=== PATIENT | male | born 1955 | race African-American/Black ===

== ENCOUNTER 2016-07-18 07:24 | Day surgery (SDC) | payer OTHER ==
[2016-07-17 11:07] VITALS: BMI 42.5
[2016-07-18 08:36] VITALS: TEMP 97.5
[2016-07-18] MEDS ORDERED: MIDAZOLAM HCL 2 MG/2 ML SINGLE DOSE VIAL ONE ×4 (10:18→11:15)
[2016-07-18] MEDS ORDERED: ceFAZolin SODIUM 1 GM VIAL ONE ×2 (10:22)
[2016-07-18] MEDS ORDERED: HEPARIN NA (PORCINE) 5,000 UNITS/ML 1ML VIAL ONE ×2 (10:23→10:59)
[2016-07-18] MEDS ORDERED: LIDOCAINE HCL 1%, 10 MG/ML (20ML VIAL) ONE (10:23)
[2016-07-18] MEDS ORDERED: ceFAZolin SODIUM 1 GM VIAL IVPB ONE (10:29)
[2016-07-18] MEDS ORDERED: LIDOCAINE HCL 1%, 10 MG/ML (20ML VIAL) IJ ONE (10:38)
[2016-07-18] MEDS ORDERED: oxyCODONE HCL 5 MG TABLET PO PRN (12:03)
[2016-07-18] MEDS ORDERED: ONDANSETRON 4 MG/2 ML VIAL IVPUSH PRN (12:03)
[2016-07-18] MEDS ORDERED: CLOPIDOGREL BISULFATE 75 MG TABLET (FP) PO ONE (12:04)
--- NOTE | 2016-07-18 12:04 | OP ---
Operative Note - Note: Operative Date: 07/18/16 Pre-Operative Diagnosis: RLE claudication Operation: Aortogram, RLE angiogram, SFA atherectomy, DCB angioplasty Findings: 90% stenosis right sfa Post-Operative Diagnosis: Same as Pre-op Surgeon: Uri Sung Anesthesia: Fractional Estimated Blood Loss (mls): 75 Operative Report Dictated: Yes
--- NOTE | 2016-07-18 12:07 | HP ---
Admitting History and Physical - Admission Chief Complaint: RLE claudication - Smoking History Smoking history: Current every day smoker Have you smoked in the past 12 months: Yes Aproximately how many cigarettes per day: 10 If you are a former smoker, when did you quit?: 3 days ago - Alcohol/Substance Use Hx Alcohol Use: Yes (occ) Home Medications - Allergies Allergies/Adverse Reactions: Allergies Allergy/AdvReac Type Severity Reaction Status Date / Time No Known Drug Allergies Allergy Verified 07/17/16 11:07 bananas Allergy Uncoded 02/05/16 12:04 - Home Medications Home Medications: Ambulatory Orders Simvastatin [Zocor -] 20 mg PO HS 02/13/12 Aspirin 81 mg PO DAILY 04/17/13 Metoprolol Tartrate [Lopressor -] 25 mg PO HS 04/17/13 Clopidogrel Bisulfate [Plavix -] 75 mg PO DAILY #30 tablet 07/18/16 Niacin (Inositol Niacinate) [Niacin 500 mg Capsule] 500 mg PO DAILY 07/18/16 Nitroglycerin [Nitrostat] 0.4 mg SL PRN PRN 07/18/16 Physical Examination Vital Signs: Vital Signs Temperature 97.5 F L 07/18/16 08:22 Pulse Rate 74 07/18/16 08:22 Respiratory Rate 18 07/18/16 08:22 Blood Pressure 115/78 07/18/16 08:22 O2 Sat by Pulse Oximetry (%) 97 07/18/16 08:22 Constitutional: Yes: Well Nourished Eyes: Yes: WNL HENT: Yes: WNL Neck: Yes: WNL Cardiovascular: Yes: WNL Respiratory: Yes: WNL Gastrointestinal: Yes: WNL Extremities: Yes: WNL Edema: No Assessment/Plan RLE claudication 1. For angiogram today
[2016-07-18] MEDS ORDERED: LACTATED RINGERS SOLUTION 1,000 ML IV SCH (12:15)
[2016-07-18 14:29] VITALS: BP 121/72; PULSE 68
--- NOTE | 2016-07-19 10:49 | OP ---
DATE OF OPERATION: 07/18/2016 PROCEDURE: 1. Aortogram 2. Right lower extremity angiogram 3. Superficial femoral artery (SFA) atherectomy with drug-coated balloon (DCB) angioplasty PREOPERATIVE DIAGNOSIS: Right lower extremity claudication. POSTOPERATIVE DIAGNOSIS: Right lower extremity claudication. SURGEON: Uri Miguel DO ANESTHESIA: Fractional. BLOOD LOSS: 75 mL. INDICATION: The patient is a 60-year-old male that has right lower extremity claudication. He had a preoperative ultrasound showing that he has an KP of 0.64 in the right lower extremity with a greater than 75% stenosis in the SFA. PROCEDURE: Patient came into the operating room for surgery. Patient was consented for the procedure, understanding all risks, benefits, alternatives, then taken to the operating room and laid on the operating table in supine manner, and the area of the right and left groin prepped and draped in a sterile surgical manner. We then went ahead and injected 10 mL lidocaine 2% over the left common femoral artery. We then took our micropuncture needle and punctured the left common femoral artery under ultrasound guidance. Micropuncture was placed, and a traditional 5-Macedonian sheath was placed. We then placed a 0.035 floppy guidewire up into the aorta followed by an Omni Flush catheter. We then shot an aortogram showing that the aorta and iliac arteries were not diseased, but the bifurcation was very narrow. We then placed a 0.035 stiff Guidewire down into the right common femoral artery and into the SFA, and our Omni-Flush catheter followed. We then shot an angiogram of the right lower extremity showing that the common femoral artery, the profunda and the proximal SFA were patent. The [id number] SFA had a 90% lesion that was flow-limiting. The rest of the distal SFA was patent. Popliteal artery was patent, and patient had two-vessel runoff into the foot, which was the AT and the PT. At this point, we placed a 0.035 stiff Guidewire into the SFA. With our Omni Flush catheter, we placed a 6 x 45 crossover sheath up and over. 7000 units of IV heparin were administered to the patient. We then were selectively able to cross the lesion, and we were able to place a Viper wire into the anterior tibial artery. We then performed CSI over the atherectomy of the [id number] SFA. We then went ahead and shot a completion angiogram showing where the stenosis was, and there was some resolution of the stenosis. At this point, we used a 5 x 8 drug-coated balloon, which is a Lutonix balloon and performed angioplasty of the SFA. Completion angiogram showed that the SFA was not patent. There was no recoil. There was good brisk flow into the foot, and the AT was the primary runoff into the foot. At this point, we brought our sheath up and over and a StarClose device was deployed in the left common femoral artery. The area was wet and dried, and Dermabond was placed. The patient tolerated the procedure with no complication. The patient was transferred to the PACU in stable condition. URI MIGUEL DO [id number]
== END 2016-07-18 14:35 | disposition home or self-care (01) ==
LOC: JASU-SURG 07:24
PROVIDERS: ATTEND Surgery Vascular Surgery
PROC: B44FZZ3 Ultrasonography of Right Lower Extremity Arteries, Intravascular (ICD-10-PCS; 2016-07-18)
PROC: B41DZZZ Fluoroscopy of Aorta and Bilateral Lower Extremity Arteries (ICD-10-PCS; 2016-07-18)
PROC: 047K3Z1 Dilation of Right Femoral Artery using Drug-Coated Balloon, Percutaneous Approach (ICD-10-PCS; principal; 2016-07-18 09:00)
DX: I70.211 Atherosclerosis of native arteries of extremities with intermittent claudication, right leg (principal)
CPT/HCPCS: 37225; 76937; C2623; 76000-TC; 94760; J1644

== ENCOUNTER 2017-01-20 13:00 | Emergency (ER) | payer OTHER ==
[2017-01-20 13:06] VITALS: TEMP 98.6; BMI 41.5
--- NOTE | 2017-01-20 13:16 | PDOC ---
Attending Attestation - Resident Resident Name: Elle Jon - HPI HPI: 01/24/17 00:41 Pt presents to the ED complaining of scrotal pain for two days. Denies fever, nausea or vomiting. Does complain of some dysuria. - Physicial Exam PE: 01/24/17 00:42 Agree with resident's exam. + testiclar pain and swelling. - Medical Decision Making 01/24/17 00:42 Patient presents to the ED complaining of testiciular pain, swelling and dysuria. Scrotal Us checked to evaluate for epididimitis, hydrocele, less likely torsion. UA is positive, scrotal US shows evidence of epididimitis. Will treat with antibiotics and discharge home with follow up.
--- NOTE | 2017-01-20 13:24 | PDOC ---
History of Present Illness - General Chief Complaint: Pain Stated Complaint: TESTICULAR PAIN Time Seen by Provider: 01/20/17 13:15 History Source: Patient - History of Present Illness Initial Comments: 01/20/17 13:30 CC: 3 day h/o testicular pain Patient is a 61 y.o. male with a PMH of CAD (s/p tri vessel CABG in 2013) and DLD who presents to our facility today c/o 3 day h/o of testicular pain. Patient describes the pain as squeezing and exacerbated by ambulating or standing. Patient states he noted the pain when he woke up on Friday morning and noticed 6-7 episodes of bright red hematuria. Patient states he drank a lot of water and the hematuria resolved by Friday, however, the pain persisted and increased in severity prompting his visit to the ED this afternoon. Patient denies any fevers, chills, nausea, vomiting or diarrhea but does note a h/o erectile dysfunction since his CABG. Patient is not currently sexually active and denies any h/o STI's and notes he was last tested subsequent to his most recent sexual activity. Past History - Past Medical History Allergies/Adverse Reactions: Allergies Allergy/AdvReac Type Severity Reaction Status Date / Time No Known Drug Allergies Allergy Verified 01/20/17 13:02 bananas Allergy Uncoded 01/20/17 13:02 Home Medications: Ambulatory Orders Simvastatin [Zocor -] 20 mg PO HS 02/13/12 Aspirin 81 mg PO DAILY 04/17/13 Metoprolol Tartrate [Lopressor -] 25 mg PO BID 04/17/13 Clopidogrel Bisulfate [Plavix -] 75 mg PO DAILY #30 tablet 07/18/16 Niacin (Inositol Niacinate) [Niacin 500 mg Capsule] 500 mg PO DAILY 07/18/16 Nitroglycerin [Nitrostat] 0.4 mg SL PRN PRN 07/18/16 Ibuprofen [Motrin -] 600 mg PO QID #28 tablet 01/20/17 Levofloxacin [Levaquin -] 500 mg PO DAILY #9 tablet 01/20/17 Anemia: No Asthma: No Cancer: No Cardiac Disorders: Yes (mi 2011) CVA: No COPD: No CHF: No Dementia: No Diabetes: No GI Disorders: No Disorders: No HTN: Yes (?) Hypercholesterolemia: Yes (MILD) Liver Disease: No Seizures: No Thyroid Disease: No - Surgical History Abdominal Surgery: No Appendectomy: No Cardiac Surgery: Yes (02/2012 3 vessel CABG) Cholecystectomy: No Lung Surgery: No Neurologic Surgery: No Orthopedic Surgery: No - Immunization History Immunization Up to Date: Yes - Suicide/Smoking/Psychosocial Hx Smoking Status: Yes Smoking History: Current every day smoker Years of Tobacco Use: 30 Have you smoked in the past 12 months: Yes Number of Cigarettes Smoked Daily: 10 If you are a former smoker, when did you quit?: 3 days ago Information on smoking cessation initiated: No 'Breaking Loose' booklet given: 07/18/16 Hx Alcohol Use: No Drug/Substance Use Hx: No Substance Use Type: None Hx Substance Use Treatment: No Review of Systems - Review of Systems Constitutional: No: Chills HEENTM: No: Eye Pain, Blurred Vision, Double Vision, Throat Pain Respiratory: No: Shortness of Breath, Wheezing Cardiac (ROS): No: Chest Pain, Edema, Lightheadedness, Palpitations ABD/GI: No: Constipated, Diarrhea, Nausea, Vomiting : Yes: Hematuria, Testicular Swelling. No: Burning, Dysuria Neurological: No: Headache, Numbness, Seizure, Tingling All Other Systems: Reviewed and Negative *Physical Exam - Vital Signs Last Vital Signs Temp Pulse Resp BP Pulse Ox 98.6 F 74 16 146/92 100 01/20/17 13:03 01/20/17 13:03 01/20/17 13:03 01/20/17 13:03 01/20/17 13:03 - Physical Exam Neck: positive: Trachea midline, Supple Respiratory/Chest: positive: Lungs Clear, Normal Breath Sounds Gastrointestinal/Abdominal: positive: Normal Bowel Sounds, Soft Male Genitalia: positive: testicular tenderness, other (R testicle edematous, hard and tender to palpation; no appreciable erythema or swelling in groin area) Musculoskeletal: positive: Normal Inspection. negative: CVA Tenderness Integumentary: positive: Normal Color, Dry, Warm Neurologic: positive: Fully Oriented, Alert ED Treatment Course - LABORATORY CBC & Chemistry Diagram: 01/20/17 13:52 01/20/17 13:52 Medical Decision Making - Medical Decision Making 01/20/17 13:59 Patient is a 61 y.o. male who presents with a 3 day h/o of testicular pain. Initial DDx is for Testicular Torsion vs. Hydrocele vs. Epididymytitis. PLAN: Scrotal U/S CBC, CMP UA 01/20/17 14:05 UA nitrite (+) and shows 2+ blood. CBC significant for leukocytosis (18) - consistent with epididymis diagnosis. Scrotal U/S notes B/L hydroceles ( unchanged from previous scrotal U/S in 2016) as well as R sided epididmisorchitis with increased flow likely accounting for patient's pain. Patient given one dose of Levaquin (500 mg) in ED and 9 day outpatient prescription (10 day course total). Patient instructed to return to ED should his pain and swelling remain unchanged in 48 hours and given outpatient follow- up with urology @ discharge. *DC/Admit/Observation/Transfer Diagnosis at time of Disposition: Epididymitis - Discharge Dispostion Disposition: HOME Condition at time of disposition: Good Admit: No - Prescriptions Prescriptions: Levofloxacin [Levaquin -] 500 mg PO DAILY #9 tablet Ibuprofen [Motrin -] 600 mg PO QID #28 tablet - Referrals Referrals: Ana Maria Saldana MD [Primary Care Provider] - Jason More MD [Staff Physician] - - Patient Instructions Printed Discharge Instructions: DI for Epididymitis Additional Instructions: Please make an appointment with Dr. More, a urologist, for further evaluation.
[2017-01-20] MEDS ORDERED: morphine CARPU-JECT 2 MG/1 ML DISP.SYRIN IVPUSH ONE ×2 (14:10→15:24)
[2017-01-20] MEDS ORDERED: morphine CARPU-JECT 4 MG/1 ML DISP.SYRIN ONE ×2 (14:11→15:46)
[2017-01-20 14:15] LABS: URINE APPEARANCE CLOUDY; URINE BILIRUBIN NEGATIVE (NEGATIVE); URINE BLOOD 2+ (NEGATIVE); URINE COLOR DKYELLOW; URINE GLUCOSE (UA) NEGATIVE (NEGATIVE); URINE KETONE 1+ (NEGATIVE); URINE NITRITE POSITIVE (NEGATIVE); URINE UROBILINOGEN NEGATIVE mg/dL (0.2-1.0)
[2017-01-20 14:18] LABS: URINE LEUK ESTERASE 3+ (NEGATIVE); URINE PROTEIN 1+ (NEGATIVE)
[2017-01-20 14:20] LABS: URINE BACTERIA RARE /hpf (NONE SEEN); URINE MUCUS MODERATE; URINE RBC 9 /hpf (0-3); URINE WBC 427 /hpf (3-5)
[2017-01-20 14:43] LABS: BASOPHIL 0.3 % (0-2.0); EOSINOPHIL 0.4 % (0-4.5); MCH 30.7 pg (25.7-33.7); MCHC 32.6 g/dl (32.0-35.9); MEAN PLT VOLUME 9.4 fl (7.5-11.1); NEUTROPHILS 78.3 % (42.8-82.8); PLATELET COUNT 194 K/MM3 (134-434); RDW 15.2 % (11.9-15.9); WHITE BLOOD COUNT 18.1 K/mm3 (4.0-10.0)
[2017-01-20 14:59] LABS: ALBUMIN 3.6 g/dl (3.4-5.0); ALK PHOS 150 U/L (45-117); ANION GAP 6 (8-16); BILIRUBIN,TOTAL 0.8 mg/dL (0.2-1.0); CALCIUM 9.1 mg/dL (8.5-10.1); CO2 27 mmol/L (21-32); CREATININE 1.2 mg/dL (0.7-1.3); GLUCOSE,RANDOM 116 mg/dL (74-106); SGOT/AST 11 U/L (15-37); SGPT/ALT 25 U/L (12-78); TOT PROT 7.7 g/dl (6.4-8.2)
[2017-01-20] MEDS ORDERED: LEVOFLOXACIN 500 MG TABLET (FP) PO ONE (15:21)
[2017-01-20] MEDS ORDERED: LEVOFLOXACIN 500 MG TABLET (FP) ONE (15:46)
[2017-01-20 16:59] VITALS: BP 127/68; PULSE 76
--- NOTE | 2017-01-24 12:57 | PDOC ---
Patient Follow-up (Call Back) - Post ED Follow - Up Chief Complaint: Pain, Acute Condition at time of discharge: Good Disposition at time of original discharge: HOME Reason for Call Back: Abnwl. Microbiology (urine resistant to Levaquin, whic is resistant spoke to pt and will place on nitrofurantoin. pt has apt with PMD in 1 week.)
== END 2017-01-20 16:59 | disposition home or self-care (01) ==
LOC: JER 13:00
PROC: 3E033NZ Introduction of Analgesics, Hypnotics, Sedatives into Peripheral Vein, Percutaneous Approach (ICD-10-PCS; principal; 2017-01-20)
DX: N45.1 Epididymitis (principal); E78.00 Pure hypercholesterolemia, unspecified; I25.10 Atherosclerotic heart disease of native coronary artery without angina pectoris; I10 Essential (primary) hypertension; F17.210 Nicotine dependence, cigarettes, uncomplicated; Z95.1 Presence of aortocoronary bypass graft
CPT/HCPCS: 36415; 76870-TC; 80053; 81003; 81015; 85025; 87086; 87186; 96374; 96376; 99282-25

== ENCOUNTER 2017-01-25 17:09 | Inpatient (IN) | payer OTHER ==
[2017-01-25 17:14] VITALS: BMI 43.2
[2017-01-25] MEDS ORDERED: KETOROLAC TROMETHAMINE 30 MG/1 ML VIAL IVPUSH ONE (17:56)
--- NOTE | 2017-01-25 18:03 | PDOC ---
History of Present Illness - General Chief Complaint: Pain Stated Complaint: Groin pain,UTI, re-visit Time Seen by Provider: 01/25/17 17:22 - History of Present Illness Initial Comments: 01/25/17 17:57 61 y.o M with pmh of CAD (s/p cabg) and hld presenting with worsening testicular pain. Patient was seen on Friday with the same symptoms. A full workup was done and patient was diagnosed with epididymitis and d/c on levaquin. Patient was called yesterday after his urine culture grew E. Doli ESBL resistent to levaquin. Patient was prescribed Nitrofurantoin. Patient comes back due to worsening pain, subjective fever, and 1 episode of foamy emesis. 01/25/17 18:03 Past History - Past Medical History Allergies/Adverse Reactions: Allergies Allergy/AdvReac Type Severity Reaction Status Date / Time No Known Drug Allergies Allergy Verified 01/25/17 17:12 bananas Allergy Uncoded 01/25/17 17:12 Home Medications: Ambulatory Orders Simvastatin [Zocor -] 20 mg PO HS 02/13/12 Aspirin 81 mg PO DAILY 04/17/13 Metoprolol Tartrate [Lopressor -] 25 mg PO BID 04/17/13 Clopidogrel Bisulfate [Plavix -] 75 mg PO DAILY #30 tablet 07/18/16 Niacin (Inositol Niacinate) [Niacin 500 mg Capsule] 500 mg PO DAILY 07/18/16 Nitroglycerin [Nitrostat] 0.4 mg SL PRN PRN 07/18/16 Ibuprofen [Motrin -] 600 mg PO QID #28 tablet 01/20/17 Nitrofurantoin Macrocrystal [Nitrofurantoin] 100 mg PO BID #14 capsule 01/24/17 Anemia: No Asthma: No Cancer: No Cardiac Disorders: Yes (mi 2011, tripple bypass) CVA: No COPD: No CHF: No Dementia: No Diabetes: No GI Disorders: No Disorders: No HTN: Yes (?) Hypercholesterolemia: Yes (MILD) Liver Disease: No Seizures: No Thyroid Disease: No - Surgical History Abdominal Surgery: No Appendectomy: No Cardiac Surgery: Yes (02/2012 3 vessel CABG) Cholecystectomy: No Lung Surgery: No Neurologic Surgery: No Orthopedic Surgery: No - Immunization History Immunization Up to Date: Yes - Suicide/Smoking/Psychosocial Hx Smoking Status: Yes Smoking History: Current every day smoker Years of Tobacco Use: 30 Have you smoked in the past 12 months: Yes Number of Cigarettes Smoked Daily: 10 If you are a former smoker, when did you quit?: 3 days ago Information on smoking cessation initiated: Yes 'Breaking Loose' booklet given: 01/25/17 Hx Alcohol Use: No Drug/Substance Use Hx: No Substance Use Type: None Hx Substance Use Treatment: No Review of Systems - Review of Systems Able to Perform ROS?: Yes Comments:: 01/25/17 18:02 Constitutional: Yes: Fever No: Chills HEENTM: No: Eye Pain, Blurred Vision, Double Vision, Throat Pain Respiratory: No: Shortness of Breath, Wheezing Cardiac (ROS): No: Chest Pain, Edema, Lightheadedness, Palpitations ABD/GI: Yes: vomiting No: Constipated, Diarrhea, Nausea : Testicular Swelling. No: Burning, Dysuria, hematuria Neurological: No: Headache, Numbness, Seizure, Tingling All Other Systems: Reviewed and Negative *Physical Exam - Vital Signs Last Vital Signs Temp Pulse Resp BP Pulse Ox 98 F 86 19 114/66 99 01/25/17 17:12 01/25/17 17:12 01/25/17 17:12 01/25/17 17:12 01/25/17 17:12 - Physical Exam Comments: 01/25/17 18:02 GENERAL: Awake, alert, and fully oriented, in no acute distress HEAD: No signs of trauma, normocephalic, atraumatic EYES: PERRLA, EOMI, sclera anicteric, conjunctiva clear ENT: Auricles normal inspection, hearing grossly normal, nares patent, oropharynx clear without exudates. Moist mucosa NECK: Normal ROM, supple, no lymphadenopathy, JVD, or masses LUNGS: No distress, speaks full sentences, clear to auscultation bilaterally HEART: Regular rate and rhythm, normal S1 and S2, no murmurs, rubs or gallops, peripheral pulses normal and equal bilaterally. ABDOMEN: Soft, nontender, normoactive bowel sounds. No guarding, no rebound. No masses EXTREMITIES: Normal inspection, Normal range of motion, no edema. No clubbing or cyanosis. NEUROLOGICAL: Cranial nerves II through XII grossly intact. Normal speech, normal gait, no focal sensorimotor deficits SKIN: Warm, Dry, normal turgor, no rashes or lesions noted. Male Genitalia: positive: testicular tenderness, other (R testicle edematous, hard and tender to palpation; no appreciable erythema or swelling in groin area) ED Treatment Course - LABORATORY CBC & Chemistry Diagram: 01/26/17 07:35 01/26/17 07:35 Medical Decision Making - Medical Decision Making 01/25/17 18:03 61 y.o M with pmh of CAD (s/p cabg) and hld presenting with worsening testicular pain. Given hx and physical, will order cbc, cmp, pain control, and repeat UA/UCx. 01/25/17 18:47 WBC-41.6. Given severe pain, urology called. Awaiting call back. 01/25/17 19:01 Care taken over by Dr. Leavitt *DC/Admit/Observation/Transfer Diagnosis at time of Disposition: Epididymitis - Discharge Dispostion Condition at time of disposition: Improved
[2017-01-25 18:12] LABS: MCH 30.1 pg (25.7-33.7); MCHC 32.8 g/dl (32.0-35.9); MEAN CELL VOLUME 91.8 fl (80-96); MEAN PLT VOLUME 8.7 fl (7.5-11.1); PLATELET COUNT 257 K/MM3 (134-434); RDW 14.5 % (11.9-15.9)
[2017-01-25] MEDS ORDERED: KETOROLAC TROMETHAMINE 30 MG/1 ML VIAL ONE (18:17)
[2017-01-25 18:21] LABS: WHITE BLOOD COUNT 41.6 K/mm3 (4.0-10.0)
[2017-01-25 18:32] LABS: URINE APPEARANCE SLCLOUDY; URINE BILIRUBIN NEGATIVE (NEGATIVE); URINE BLOOD 1+ (NEGATIVE); URINE COLOR AMBER; URINE GLUCOSE (UA) NEGATIVE (NEGATIVE); URINE KETONE 1+ (NEGATIVE); URINE NITRITE NEGATIVE (NEGATIVE)
[2017-01-25 18:34] LABS: ALBUMIN 3.1 g/dl (3.4-5.0); ALK PHOS 137 U/L (45-117); ANION GAP 8 (8-16); BILIRUBIN,TOTAL 0.8 mg/dL (0.2-1.0); CALCIUM 8.5 mg/dL (8.5-10.1); CO2 27 mmol/L (21-32); CREATININE 1.4 mg/dL (0.7-1.3); GLUCOSE,RANDOM 140 mg/dL (74-106); SGOT/AST 17 U/L (15-37); SGPT/ALT 37 U/L (12-78); TOT PROT 7.1 g/dl (6.4-8.2)
[2017-01-25] MEDS ORDERED: PIPERACILLIN/TAZOB 3.375 GM 3.375 GM in DEXTROSE 5%-WATER - 50 ML IVPB ONE (18:44)
--- NOTE | 2017-01-25 18:44 | PDOC ---
History of Present Illness - General Chief Complaint: Pain Stated Complaint: Groin pain,UTI, re-visit Time Seen by Provider: 01/25/17 17:22 - History of Present Illness Initial Comments: 01/25/17 18:35 61 M with recently diagnosed epididymitis presenting to ER with worsening scrotal pain and swelling. Pt was initially seen here 5 days ago with same complaint, had a scrotal ultrasound that showed likely epididymitis, and pt was DC'ed home with course of levaquin. He took this until he was called yesterday with his urine culture results, that showed E coli that was resistant to levaquin. Pt was then prescribed macrobid yesterday, which he has taken a single dose of. Pt presents today with complaint of worsening scrotal pain and subjective fevers. Past History - Past Medical History Allergies/Adverse Reactions: Allergies Allergy/AdvReac Type Severity Reaction Status Date / Time No Known Drug Allergies Allergy Verified 01/25/17 17:12 bananas Allergy Uncoded 01/25/17 17:12 Home Medications: Ambulatory Orders Simvastatin [Zocor -] 20 mg PO HS 02/13/12 Aspirin 81 mg PO DAILY 04/17/13 Metoprolol Tartrate [Lopressor -] 25 mg PO BID 04/17/13 Clopidogrel Bisulfate [Plavix -] 75 mg PO DAILY #30 tablet 07/18/16 Niacin (Inositol Niacinate) [Niacin 500 mg Capsule] 500 mg PO DAILY 07/18/16 Nitroglycerin [Nitrostat] 0.4 mg SL PRN PRN 07/18/16 Ibuprofen [Motrin -] 600 mg PO QID #28 tablet 01/20/17 Nitrofurantoin Macrocrystal [Nitrofurantoin] 100 mg PO BID #14 capsule 01/24/17 Anemia: No Asthma: No Cancer: No Cardiac Disorders: Yes (mi 2011, tripple bypass) CVA: No COPD: No CHF: No Dementia: No Diabetes: No GI Disorders: No Disorders: No HTN: Yes (?) Hypercholesterolemia: Yes (MILD) Liver Disease: No Seizures: No Thyroid Disease: No - Surgical History Abdominal Surgery: No Appendectomy: No Cardiac Surgery: Yes (02/2012 3 vessel CABG) Cholecystectomy: No Lung Surgery: No Neurologic Surgery: No Orthopedic Surgery: No - Immunization History Immunization Up to Date: Yes - Suicide/Smoking/Psychosocial Hx Smoking Status: Yes Smoking History: Current every day smoker Years of Tobacco Use: 30 Have you smoked in the past 12 months: Yes Number of Cigarettes Smoked Daily: 10 If you are a former smoker, when did you quit?: 3 days ago Information on smoking cessation initiated: Yes 'Breaking Loose' booklet given: 01/25/17 Hx Alcohol Use: No Drug/Substance Use Hx: No Substance Use Type: None Hx Substance Use Treatment: No Abd/GI Specific PMHX - Complaint Specific PMHX GERD: No Review of Systems - Review of Systems Comments:: 01/25/17 18:37 "GENERAL/CONSTITUTIONAL: No fever or chills. No weakness. HEAD, EYES, EARS, NOSE AND THROAT: No change in vision. No ear pain or discharge. No sore throat. CARDIOVASCULAR: No chest pain or shortness of breath. RESPIRATORY: No cough, wheezing, or hemoptysis. GASTROINTESTINAL: No nausea, vomiting, diarrhea or constipation. GENITOURINARY: +scrotal pain and swelling. MUSCULOSKELETAL: No joint or muscle swelling or pain. No neck or back pain. SKIN: No rash NEUROLOGIC: No headache, vertigo, loss of consciousness, or change in strength/ sensation. ENDOCRINE: No increased thirst. No abnormal weight change. HEMATOLOGIC/LYMPHATIC: No anemia, easy bleeding, or history of blood clots. ALLERGIC/IMMUNOLOGIC: No hives or skin allergy. " *Physical Exam - Vital Signs Last Vital Signs Temp Pulse Resp BP Pulse Ox 98 F 86 19 114/66 99 01/25/17 17:12 01/25/17 17:12 01/25/17 17:12 01/25/17 17:12 01/25/17 17:12 - Physical Exam Comments: 01/25/17 18:38 "GENERAL: Awake, alert, and fully oriented, in no acute distress HEAD: No signs of trauma EYES: PERRLA, EOMI, sclera anicteric, conjunctiva clear ENT: Auricles normal inspection, hearing grossly normal, nares patent, oropharynx clear without exudates. Moist mucosa NECK: Nontender, no stepoffs, Normal ROM, supple, no lymphadenopathy, JVD, or masses LUNGS: Breath sounds equal, clear to auscultation bilaterally. No wheezes, and no crackles HEART: Regular rate and rhythm, normal S1 and S2, no murmurs, rubs or gallops ABDOMEN: Soft, nontender, normoactive bowel sounds. No guarding, no rebound. No masses : bilateral scrotal edema and induration, R>L, tender to palpation, no fluctuance noted, no significant erythema EXTREMITIES: Normal range of motion, no edema. No clubbing or cyanosis. No cords, erythema, or tenderness NEUROLOGICAL: Cranial nerves II through XII intact. 5/5 strength and sensation in all extremities, Normal speech, normal gait SKIN: Warm, Dry, normal turgor, no rashes or lesions noted. " ED Treatment Course - LABORATORY CBC & Chemistry Diagram: 01/25/17 18:09 01/25/17 18:09 - ADDITIONAL ORDERS Additional order review: 01/25/17 18:09 RBC 5.20 MCV 91.8 MCHC 32.8 RDW 14.5 MPV 8.7 Neutrophils % No Result Required. Lymphocytes % No Result Required. - Medications Given in the ED: ED Medications Discontinued Medications Generic Name Dose Route Start Last Admin Trade Name Freq PRN Reason Stop Dose Admin Ketorolac Tromethamine 30 mg 01/25/17 17:56 01/25/17 18:25 Toradol Injection - IVPUSH 01/25/17 17:57 30 mg ONCE ONE Administration Medical Decision Making - Medical Decision Making 01/25/17 18:39 61 M with epididymitis found on scrotal US 5 days ago, now with worsening pain and swelling in the context of inadequate antibiotic coverage. Pt with no fevers currently. - labs, UA - Abx - Discuss with urology 01/25/17 18:56 WBC 41, pt started on IV zosyn. Will admit to obs. Urology consulted, awaiting callback. 01/25/17 19:00 Spoke with urology, who recommends repeat US. Agrees with starting pt on Zosyn while awaiting new urine culture. Pt to be admitted to hospitalist. Care signed out to night team, pending repeat US and admission to hospital. Case discussed in detail with oncoming Emergency Physician including history, physical exam and ancillary studies. Oncoming Emergency Physician has assumed care for the patient and will complete the evaluation and treatment. Patient is aware of the plan. *DC/Admit/Observation/Transfer Diagnosis at time of Disposition: Epididymitis - Discharge Dispostion Condition at time of disposition: Improved - Attestations Physician Attestion: 01/26/17 07:57 I, Dr. Yakov Anderson MD, attest that this document has been prepared under my direction and personally reviewed by me in its entirety. I further attest, that it accurately reflects all work, treatment, procedures and medical decision -making performed by me.
[2017-01-25 18:47] LABS: URINE PROTEIN 1+ (NEGATIVE)
[2017-01-25] MEDS ORDERED: PIPERACILLIN/TAZOB 3.375 GM 50 ML IVPB ONE (18:55)
--- NOTE | 2017-01-25 19:10 | PDOC ---
*Physical Exam - Vital Signs Last Vital Signs Temp Pulse Resp BP Pulse Ox 98 F 86 19 114/66 99 01/25/17 17:12 01/25/17 17:12 01/25/17 17:12 01/25/17 17:12 01/25/17 17:12 ED Treatment Course - LABORATORY CBC & Chemistry Diagram: 01/25/17 18:09 01/25/17 18:09 - ADDITIONAL ORDERS Additional order review: Laboratory Results 01/25/17 01/25/17 18:20 18:09 Sodium 139 Potassium 3.8 Chloride 104 Carbon Dioxide 27 Anion Gap 8 BUN 10 D Creatinine 1.4 H Creat Clearance w eGFR 51.69 Random Glucose 140 H D Calcium 8.5 Total Bilirubin 0.8 AST 17 D ALT 37 D Alkaline Phosphatase 137 H Total Protein 7.1 Albumin 3.1 L Urine Color Jessica Urine Appearance Slcloudy Urine pH 5.0 Urine Protein 1+ H Urine Glucose (UA) Negative Urine Ketones 1+ H Urine Blood 1+ H Urine Nitrite Negative Urine Bilirubin Negative Urine Urobilinogen 2.0 01/25/17 18:09 RBC 5.20 MCV 91.8 MCHC 32.8 RDW 14.5 MPV 8.7 Neutrophils % No Result Required. Lymphocytes % No Result Required. - Medications Given in the ED: ED Medications Discontinued Medications Generic Name Dose Route Start Last Admin Trade Name Rey PRN Reason Stop Dose Admin Ketorolac Tromethamine 30 mg 01/25/17 17:56 01/25/17 18:25 Toradol Injection - IVPUSH 01/25/17 17:57 30 mg ONCE ONE Administration Medical Decision Making - Medical Decision Making WBC 41, suspected epididimytis. Micrologged, seen, awaitng response. Will get repeat testicular ultrasound. 01/25/17 19:[address] Gilmore signed out to the director of medical staff services over the phone. 01/25/17 19:13 *DC/Admit/Observation/Transfer Diagnosis at time of Disposition: Epididymitis - Discharge Dispostion Condition at time of disposition: Improved Admit: Yes
--- NOTE | 2017-01-25 19:23 | PN ---
Teaching Attending Note Name of Resident: Gino Marroquin ATTENDING PHYSICIAN STATEMENT I saw and evaluated the patient. I reviewed the resident's note and discussed the case with the resident. I agree with the resident's findings and plan as documented. SUBJECTIVE: 61 y/o M c/o right testicular pain and swelling for 3 weeeks, initially treated with levofloxacin and then found to be with ESBL not sensitive to levofloxacin. Presented complianing of 10/ testicular pain. OBJECTIVE: Gen: Afebrile, in acute distress with movement HEENT: NC, AT, PERRLA, EOMI, MMM LUNGS: CTA CVS: RRR, S1, S2 no M/G/R ABD: obese, NT, BS+, no CVA tenderness : right testicle enlarged, tender to palpation, positive Prhen sign, testicle enlarged no nodules palpated no mass. Neuro: CN2-12 intact Laboratory Results - last 24 hr 01/25/17 01/25/17 01/25/17 18:09 18:09 18:20 WBC 41.6 H* D RBC 5.20 Hgb 15.7 Hct 47.8 MCV 91.8 MCH 30.1 MCHC 32.8 RDW 14.5 Plt Count 257 D MPV 8.7 Neutrophils % No Result Required. Lymphocytes % No Result Required. Sodium 139 Potassium 3.8 Chloride 104 Carbon Dioxide 27 Anion Gap 8 BUN 10 D Creatinine 1.4 H Creat Clearance w eGFR 51.69 Random Glucose 140 H D Calcium 8.5 Total Bilirubin 0.8 AST 17 D ALT 37 D Alkaline Phosphatase 137 H C-Reactive Protein Total Protein 7.1 Albumin 3.1 L Urine Color Jessica Urine Appearance Slcloudy Urine pH 5.0 Urine Protein 1+ H Urine Glucose (UA) Negative Urine Ketones 1+ H Urine Blood 1+ H Urine Nitrite Negative Urine Bilirubin Negative Urine Urobilinogen 2.0 01/25/17 18:30 WBC RBC Hgb Hct MCV MCH MCHC RDW Plt Count MPV Neutrophils % Lymphocytes % Sodium Potassium Chloride Carbon Dioxide Anion Gap BUN Creatinine Creat Clearance w eGFR Random Glucose Calcium Total Bilirubin AST ALT Alkaline Phosphatase C-Reactive Protein 14.2 H Total Protein Albumin Urine Color Urine Appearance Urine pH Urine Protein Urine Glucose (UA) Urine Ketones Urine Blood Urine Nitrite Urine Bilirubin Urine Urobilinogen ASSESSMENT AND PLAN: Epididymitis possibly secondary to UTI- Meropenem sensitive IVF Follow urology and ID consults Tramadol prn
[2017-01-25 19:39] LABS: METAMYELOCYTE 4 % (0-2); MYELOCYTE 2 % (0-2); PLATELET COMMENT2 FEW GIANT PLTS; PLATELET ESTIMATE ADEQUATE (NORMAL); TOTAL CELLS COUNTED 100
--- NOTE | 2017-01-25 21:46 | HP ---
<Gino Marroquin - Last Filed: 01/26/17 07:04> CHIEF COMPLAINT: right testicular pain PCP: Dr. Kim HISTORY OF PRESENT ILLNESS: 61M w/ hx of CAD s/p CABG x 3 vessel and HLD presenting with 9 days of right testicular pain. Pt reports that he went to the ED on 01/20 where he was diagnosed with epididymitis and a UTI, and discharged home on a course of levaquin and motrin. Pt states that his sxs did not resolve and the motrin barely helped. Yesterday, the pt was called and notified that the urine cultures grew E. coli ESBL that was resistant to levaquin, and was told to switch abx to nitrofurantoin. However, despite taking 3 doses of nitrofurantoin , his pain was too severe, and his mother was adamant that he come back to the ED. Pt states that the pain is 10/10 when moving, 5/10 at rest, is sharp, and radiates to upper thigh and groin. He also reports subjective fevers, chills, cold sweats, an episode of emesis this am, and urinary frequency. He denies dysuria, urgency, chest pain, SOB, abdominal pain, diarrhea, constipation, and being sexually active since his . ER course was notable for: (1) leukocytosis of 41 (2) ESR of 60 (3) Recent Travel: PAST MEDICAL HISTORY: CAD and HLD PAST SURGICAL HISTORY: CABG x 3 vessel Social History: Smokin cig/day x 44 years Alcohol: none Drugs: none Family History: denies Allergies No Known Drug Allergies Allergy (Verified 01/25/17 17:12) bananas Allergy (Uncoded 01/25/17 17:12) HOME MEDICATIONS: Home Medications Medication Instructions Recorded Simvastatin [Zocor -] 20 mg PO HS 02/13/12 Aspirin 81 mg PO DAILY 04/17/13 Metoprolol Tartrate [Lopressor -] 25 mg PO BID 04/17/13 Clopidogrel Bisulfate [Plavix -] 75 mg PO DAILY #30 tablet 07/18/16 Niacin (Inositol Niacinate) 500 mg PO DAILY 07/18/16 [Niacin 500 mg Capsule] Nitroglycerin [Nitrostat] 0.4 mg SL PRN PRN 07/18/16 Ibuprofen [Motrin -] 600 mg PO QID #28 tablet 01/20/17 Nitrofurantoin Macrocrystal 100 mg PO BID #14 capsule 01/24/17 [Nitrofurantoin] REVIEW OF SYSTEMS CONSTITUTIONAL: Absent: diaphoresis, generalized weakness, malaise, loss of appetite, weight change Present: fevers, chills HEENT: Absent: rhinorrhea, nasal congestion, throat pain, throat swelling, difficulty swallowing, mouth swelling, ear pain, eye pain, visual changes CARDIOVASCULAR: Absent: chest pain, syncope, palpitations, irregular heart rate, lightheadedness , peripheral edema RESPIRATORY: Absent: cough, shortness of breath, dyspnea with exertion, orthopnea, wheezing, stridor, hemoptysis GASTROINTESTINAL: Absent: abdominal pain, abdominal distension, nausea, vomiting, diarrhea, constipation, melena, hematochezia GENITOURINARY: Absent: dysuria, urgency, hesitancy, hematuria, flank pain Present: frequency, genital pain MUSCULOSKELETAL: Absent: myalgia, arthralgia, joint swelling, back pain, neck pain SKIN: Absent: rash, itching, pallor HEMATOLOGIC/IMMUNOLOGIC: Absent: easy bleeding, easy bruising, lymphadenopathy, frequent infections ENDOCRINE: Absent: unexplained weight gain, unexplained weight loss, heat intolerance, cold intolerance NEUROLOGIC: Absent: headache, focal weakness or paresthesias, dizziness, unsteady gait, seizure, mental status changes, bladder or bowel incontinence PSYCHIATRIC: Absent: anxiety, depression, suicidal or homicidal ideation, hallucinations. PHYSICAL EXAMINATION GENERAL: Awake, alert, and fully oriented, in mild distress. HEAD: Normal with no signs of trauma. EYES: Pupils equal, round and reactive to light, extraocular movements intact, sclera anicteric, conjunctiva clear. No lid lag. EARS, NOSE, THROAT: Ears normal, nares patent, oropharynx clear without exudates. Moist mucous membranes. NECK: Normal range of motion, supple without lymphadenopathy, JVD, or masses. LUNGS: Breath sounds equal, clear to auscultation bilaterally. No wheezes, and no crackles. No accessory muscle use. HEART: Regular rate and rhythm, normal S1 and S2 without murmur, rub or gallop. ABDOMEN: Soft, nontender, not distended, normoactive bowel sounds, no guarding, no rebound, no masses. No hepatomegaly or splenomegaly. Back: no CVA tenderness MUSCULOSKELETAL: Normal range of motion at all joints. No bony deformities or tenderness. No CVA tenderness. UPPER EXTREMITIES: 2+ pulses, warm, well-perfused. No cyanosis. No clubbing. No peripheral edema. LOWER EXTREMITIES: 2+ pulses, warm, well-perfused. No calf tenderness. No peripheral edema. NEUROLOGICAL: Cranial nerves II-XII intact. Normal speech. Normal gait. PSYCHIATRIC: Cooperative. Good eye contact. Appropriate mood and affect. SKIN: Warm, dry, normal turgor, no rashes or lesions noted, normal capillary refill. Genitourinary: right testicle is indurated, swollen and edematous, and markedly tender Laboratory Tests 01/25/17 01/25/17 01/25/17 18:09 18:09 18:20 WBC 41.6 H* D RBC 5.20 Hgb 15.7 Hct 47.8 MCV 91.8 MCH 30.1 MCHC 32.8 RDW 14.5 Plt Count 257 D MPV 8.7 Total Counted 100 Neutrophils % No Result Required. Neutrophils % (Manual) 67 Band Neuts % (Manual) 18 H Lymphocytes % No Result Required. Lymphocytes % (Manual) 5 L Monocytes % (Manual) 4 Myelocytes % (Man) 2 Platelet Estimate Adequate Platelet Comment Few giant plts ESR Sodium 139 Potassium 3.8 Chloride 104 Carbon Dioxide 27 Anion Gap 8 BUN 10 D Creatinine 1.4 H Creat Clearance w eGFR 51.69 Random Glucose 140 H D Lactic Acid Calcium 8.5 Total Bilirubin 0.8 AST 17 D ALT 37 D Alkaline Phosphatase 137 H C-Reactive Protein Total Protein 7.1 Albumin 3.1 L Urine Color Jessica Urine Appearance Slcloudy Urine pH 5.0 Urine Protein 1+ H Urine Glucose (UA) Negative Urine Ketones 1+ H Urine Blood 1+ H Urine Nitrite Negative Urine Bilirubin Negative Urine Urobilinogen 2.0 01/25/17 01/25/17 01/25/17 18:30 18:30 19:30 WBC RBC Hgb Hct MCV MCH MCHC RDW Plt Count MPV Total Counted Neutrophils % Neutrophils % (Manual) Band Neuts % (Manual) Lymphocytes % Lymphocytes % (Manual) Monocytes % (Manual) Myelocytes % (Man) Platelet Estimate Platelet Comment ESR 60 H Sodium Potassium Chloride Carbon Dioxide Anion Gap BUN Creatinine Creat Clearance w eGFR Random Glucose Lactic Acid 1.1 Calcium Total Bilirubin AST ALT Alkaline Phosphatase C-Reactive Protein 14.2 H Total Protein Albumin Urine Color Urine Appearance Urine pH Urine Protein Urine Glucose (UA) Urine Ketones Urine Blood Urine Nitrite Urine Bilirubin Urine Urobilinogen ASSESSMENT/PLAN: 61M w/ hx of CAD s/p CABG x 3 vessel, HLD, and recent ED visit for epididymitis (treated with levaquin until Ucx showed resistance) presenting with acute right testicular pain, found to have a leukocytosis of 41, an ESR of 60, admitted for unresolved UTI and epididymitis. #Epididymitis -unresolved from prior ED visit -urology consult, f/u recs -meropenem 1g q8h started as previous Ucx showed sensitivity -ID consult, Dr. Liu on board, f/u recs -f/u Ucx and Bcx -f/u US scrotum -pain control with tramadol and APAP -trend wbc #UTI -pt complaining of frequency, but no dysuria or urgency -UA shows 1+ blood, ketones, protein, and leukocyte esterase, and 20-25 wbc -meropenem 1g q8h started as previous Ucx showed sensitivity -f/u Ucx and Bcx -trend wbc -isolation precautions for ESBL #CAD -continue home ASA 81 and plavix 75 -lopressor 25 BID held due to normal BP #HLD -continue home niacin 500 and zocor 20 #FEN/ppx -NS at 100 -electrolytes wnl -regular diet -no GI ppx indicated -lovenox 40 Gino Marroquin MD PGY1 Visit type - Emergency Visit Emergency Visit: Yes ED Registration Date: 01/25/17 Care time: The patient presented to the Emergency Department on the above date and was hospitalized for further evaluation of their emergent condition. - New Patient This patient is new to me today: Yes Date on this admission: 01/26/17 - Critical Care Critical Care patient: No <PascualEugenia abraham - Last Filed: 01/29/17 13:09> CHIEF COMPLAINT: PCP: HISTORY OF PRESENT ILLNESS: ER course was notable for: (1) (2) (3) Recent Travel: PAST MEDICAL HISTORY: PAST SURGICAL HISTORY: Social History: Smoking: Alcohol: Drugs: Family History: Allergies No Known Drug Allergies Allergy (Verified 01/25/17 17:12) bananas Allergy (Uncoded 01/25/17 17:12) HOME MEDICATIONS: Home Medications Medication Instructions Recorded Simvastatin [Zocor -] 20 mg PO HS 02/13/12 Aspirin 81 mg PO DAILY 04/17/13 Metoprolol Tartrate [Lopressor -] 25 mg PO BID 04/17/13 Clopidogrel Bisulfate [Plavix -] 75 mg PO DAILY #30 tablet 07/18/16 Niacin (Inositol Niacinate) 500 mg PO DAILY 07/18/16 [Niacin 500 mg Capsule] Nitroglycerin [Nitrostat] 0.4 mg SL PRN PRN 07/18/16 Ibuprofen [Motrin -] 600 mg PO QID #28 tablet 01/20/17 Nitrofurantoin Macrocrystal 100 mg PO BID #14 capsule 01/24/17 [Nitrofurantoin] REVIEW OF SYSTEMS CONSTITUTIONAL: Absent: fever, chills, diaphoresis, generalized weakness, malaise, loss of appetite, weight change HEENT: Absent: rhinorrhea, nasal congestion, throat pain, throat swelling, difficulty swallowing, mouth swelling, ear pain, eye pain, visual changes CARDIOVASCULAR: Absent: chest pain, syncope, palpitations, irregular heart rate, lightheadedness , peripheral edema RESPIRATORY: Absent: cough, shortness of breath, dyspnea with exertion, orthopnea, wheezing, stridor, hemoptysis GASTROINTESTINAL: Absent: abdominal pain, abdominal distension, nausea, vomiting, diarrhea, constipation, melena, hematochezia GENITOURINARY: Absent: dysuria, frequency, urgency, hesitancy, hematuria, flank pain, genital pain MUSCULOSKELETAL: Absent: myalgia, arthralgia, joint swelling, back pain, neck pain SKIN: Absent: rash, itching, pallor HEMATOLOGIC/IMMUNOLOGIC: Absent: easy bleeding, easy bruising, lymphadenopathy, frequent infections ENDOCRINE: Absent: unexplained weight gain, unexplained weight loss, heat intolerance, cold intolerance NEUROLOGIC: Absent: headache, focal weakness or paresthesias, dizziness, unsteady gait, seizure, mental status changes, bladder or bowel incontinence PSYCHIATRIC: Absent: anxiety, depression, suicidal or homicidal ideation, hallucinations. PHYSICAL EXAMINATION Vital Signs - 24 hr 01/28/17 01/28/17 01/28/17 14:00 18:00 22:00 Temperature 97.5 F L 98.6 F 98.3 F Pulse Rate 76 78 82 Respiratory 22 20 20 Rate Blood Pressure 110/64 119/66 116/67 O2 Sat by Pulse 98 Oximetry (%) 10/11/17 06:12 Temperature 98.0 F Pulse Rate 77 Respiratory 20 Rate Blood Pressure 111/68 O2 Sat by Pulse Oximetry (%) GENERAL: Awake, alert, and fully oriented, in no acute distress. HEAD: Normal with no signs of trauma. EYES: Pupils equal, round and reactive to light, extraocular movements intact, sclera anicteric, conjunctiva clear. No lid lag. EARS, NOSE, THROAT: Ears normal, nares patent, oropharynx clear without exudates. Moist mucous membranes. NECK: Normal range of motion, supple without lymphadenopathy, JVD, or masses. LUNGS: Breath sounds equal, clear to auscultation bilaterally. No wheezes, and no crackles. No accessory muscle use. HEART: Regular rate and rhythm, normal S1 and S2 without murmur, rub or gallop. ABDOMEN: Soft, nontender, not distended, normoactive bowel sounds, no guarding, no rebound, no masses. No hepatomegaly or splenomegaly. MUSCULOSKELETAL: Normal range of motion at all joints. No bony deformities or tenderness. No CVA tenderness. UPPER EXTREMITIES: 2+ pulses, warm, well-perfused. No cyanosis. No clubbing. No peripheral edema. LOWER EXTREMITIES: 2+ pulses, warm, well-perfused. No calf tenderness. No peripheral edema. NEUROLOGICAL: Cranial nerves II-XII intact. Normal speech. Normal gait. PSYCHIATRIC: Cooperative. Good eye contact. Appropriate mood and affect. SKIN: Warm, dry, normal turgor, no rashes or lesions noted, normal capillary refill. Laboratory Results - last 24 hr 01/29/17 01/29/17 06:20 06:20 WBC 12.4 H RBC 4.65 Hgb 14.2 Hct 42.9 MCV 92.4 MCH 30.5 MCHC 33.0 RDW 14.6 Plt Count 293 MPV 9.2 Neutrophils % 65.5 Lymphocytes % 21.5 Monocytes % 9.5 Eosinophils % 2.7 Basophils % 0.8 Sodium 139 Potassium 4.3 Chloride 103 Carbon Dioxide 27 Anion Gap 9 BUN 12 Creatinine 1.0 Random Glucose 88 Calcium 8.5 ASSESSMENT/PLAN:
[2017-01-25] MEDS ORDERED: KETOROLAC TROMETHAMINE 30 MG/1 ML VIAL IVPUSH PRN (21:57)
[2017-01-25] MEDS ORDERED: ACETAMINOPHEN 325 MG TABLET (FP) PO PRN ×2 (22:00→22:16)
[2017-01-25 23:06] LABS: URINE LEUK ESTERASE 1+ (NEGATIVE)
[2017-01-25 23:37] LABS: URINE MUCUS 2+; URINE WBC 20-25 (3-5)
[2017-01-25] MEDS ORDERED: PT OWN MED DRAWER 7, Y5N ONE (23:44)
[2017-01-26] MEDS: MEROPENEM 1 GM in DEXTROSE 5%-WATER - 100 ML IVPB SCH ×2 (01:22→10:19)
[2017-01-26] MEDS: traMADol HCL 50 MG TABLET PO PRN ×4 (01:29→20:03)
[2017-01-26] MEDS: SODIUM CHLORIDE 1,000 ML IV SCH ×2 (07:30→21:28)
[2017-01-26 08:39] LABS: MCHC 32.5 g/dl (32.0-35.9); MEAN CELL VOLUME 92.3 fl (80-96); MEAN PLT VOLUME 8.9 fl (7.5-11.1); PLATELET COUNT 238 K/MM3 (134-434); RDW 14.6 % (11.9-15.9)
[2017-01-26 08:55] LABS: ALBUMIN 2.7 g/dl (3.4-5.0); ANION GAP 9 (8-16); BILIRUBIN,TOTAL 0.8 mg/dL (0.2-1.0); CALCIUM 8.4 mg/dL (8.5-10.1); CO2 26 mmol/L (21-32); CREATININE 1.2 mg/dL (0.7-1.3); GLUCOSE,RANDOM 85 mg/dL (74-106); MAGNESIUM 2.3 mg/dL (1.8-2.4); PHOSPHOROUS 3.3 mg/dL (2.5-4.9); SGOT/AST 15 U/L (15-37)
[2017-01-26 08:57] LABS: ALK PHOS 124 U/L (45-117); SGPT/ALT 28 U/L (12-78); TOT PROT 6.5 g/dl (6.4-8.2)
[2017-01-26 09:08] LABS: WHITE BLOOD COUNT 35.3 K/mm3 (4.0-10.0)
--- NOTE | 2017-01-26 09:57 | CON.GU ---
Consult Consult Specialty:: Referred by:: Evelyn Reason for Consultation:: epididymitis - History of Present Illness Chief Complaint: R testicular pain and swelling History of Present Illness: 61 yo m pres to ED c/o R testicular pain and swelling x 9 days. Pt was recently seen in ED and was dxd w R epididymitis and UTI rxd w levaquin however Ucx grew ESBL E coli resistant to levaquin. He was adm for IV meropenem and cons req. - History Source History Provided By: Patient, Medical Record Limitations to Obtaining History: No Limitations - Past Medical History Cardio/Vascular: Yes: CAD, HTN, Hyperlipdemia - Alcohol/Substance Use Hx Alcohol Use: No - Smoking History Smoking history: Current every day smoker Have you smoked in the past 12 months: Yes Aproximately how many cigarettes per day: 10 If you are a former smoker, when did you quit?: 3 days ago Home Medications - Allergies Allergies/Adverse Reactions: Allergies Allergy/AdvReac Type Severity Reaction Status Date / Time No Known Drug Allergies Allergy Verified 01/25/17 17:12 bananas Allergy Uncoded 01/25/17 17:12 - Home Medications Home Medications: Ambulatory Orders Simvastatin [Zocor -] 20 mg PO HS 02/13/12 Aspirin 81 mg PO DAILY 04/17/13 Metoprolol Tartrate [Lopressor -] 25 mg PO BID 04/17/13 Clopidogrel Bisulfate [Plavix -] 75 mg PO DAILY #30 tablet 07/18/16 Niacin (Inositol Niacinate) [Niacin 500 mg Capsule] 500 mg PO DAILY 07/18/16 Nitroglycerin [Nitrostat] 0.4 mg SL PRN PRN 07/18/16 Ibuprofen [Motrin -] 600 mg PO QID #28 tablet 01/20/17 Nitrofurantoin Macrocrystal [Nitrofurantoin] 100 mg PO BID #14 capsule 01/24/17 Review of Systems - Review of Systems Genitourinary: reports: Frequency, Testicular Pain, Testicular Swelling Physical Exam- Vital Signs: Vital Signs Temperature 97.8 F 01/26/17 06:00 Pulse Rate 79 01/26/17 06:00 Respiratory Rate 16 01/25/17 22:22 Blood Pressure 117/70 01/26/17 06:00 O2 Sat by Pulse Oximetry (%) 99 01/25/17 17:12 Gastrointestinal: Yes: WNL, Normal Bowel Sounds, Soft Renal/: Yes: WNL Kidneys: Yes: WNL Testicles: Yes: Mass (R epididymis swollen, indurated and tender), Tenderness Penis: Yes: WNL Labs: CBC, BMP 01/26/17 07:35 01/26/17 07:35 Imaging - Results Ultrasound: Image Reviewed Assessment/Plan Imp: R epididymitis, ESBL Ecoli UTI, leukocytosis Rec: cont iv abxs, scrotal elevation, analgesics, await Ucx
[2017-01-26 09:59] LABS: BASOPHIL (MANUAL) 2 % (0-2.0); PLATELET ESTIMATE ADEQUATE (NORMAL); TOTAL CELLS COUNTED 100
[2017-01-26] MEDS ORDERED: PT OWN MED DRAWER 7, Y5N ONE (10:07)
[2017-01-26] MEDS: CLOPIDOGREL BISULFATE 75 MG TABLET (FP) PO SCH (10:22)
[2017-01-26] MEDS: ENOXAPARIN NA (PORCINE) 40 MG/0.4 ML DISP.SYRIN SQ SCH (10:22)
[2017-01-26] MEDS: ASPIRIN 81 MG CHEWABLE TABLETS PO SCH (10:23)
--- NOTE | 2017-01-26 10:40 | PN ---
Progress Note (short form) - Note Progress Note: Subjective: cont to have R testicular paina nd swelling. has no fever here but had fever and chills at home Objective: Vital Signs: Last Vital Signs Temp Pulse Resp BP Pulse Ox 97.8 F 79 16 117/70 99 01/26/17 06:00 01/26/17 06:00 01/25/17 22:22 01/26/17 06:00 01/25/17 17:12 Laboratory Results - last 24 hr 01/25/17 01/25/17 01/25/17 18:09 18:09 18:20 WBC 41.6 H* D RBC 5.20 Hgb 15.7 Hct 47.8 MCV 91.8 MCH 30.1 MCHC 32.8 RDW 14.5 Plt Count 257 D MPV 8.7 Total Counted 100 Neutrophils % No Result Required. Neutrophils % (Manual) 67 Band Neuts % (Manual) 18 H Lymphocytes % No Result Required. Lymphocytes % (Manual) 5 L Monocytes % (Manual) 4 Eosinophils % (Manual) Basophils % (Manual) Myelocytes % (Man) 2 Platelet Estimate Adequate Platelet Comment Few giant plts ESR Sodium 139 Potassium 3.8 Chloride 104 Carbon Dioxide 27 Anion Gap 8 BUN 10 D Creatinine 1.4 H Creat Clearance w eGFR 51.69 Random Glucose 140 H D Lactic Acid Calcium 8.5 Phosphorus Magnesium Total Bilirubin 0.8 AST 17 D ALT 37 D Alkaline Phosphatase 137 H C-Reactive Protein Total Protein 7.1 Albumin 3.1 L Urine Color Jessica Urine Appearance Slcloudy Urine pH 5.0 Ur Specific [place] 1.020 Urine Protein 1+ H Urine Glucose (UA) Negative Urine Ketones 1+ H Urine Blood 1+ H Urine Nitrite Negative Urine Bilirubin Negative Urine Urobilinogen 2.0 Ur Leukocyte Esterase 1+ H Urine RBC Urine WBC Ur Epithelial Cells Urine Mucus 01/25/17 01/25/17 01/25/17 18:20 18:30 18:30 WBC RBC Hgb Hct MCV MCH MCHC RDW Plt Count MPV Total Counted Neutrophils % Neutrophils % (Manual) Band Neuts % (Manual) Lymphocytes % Lymphocytes % (Manual) Monocytes % (Manual) Eosinophils % (Manual) Basophils % (Manual) Myelocytes % (Man) Platelet Estimate Platelet Comment ESR 60 H Sodium Potassium Chloride Carbon Dioxide Anion Gap BUN Creatinine Creat Clearance w eGFR Random Glucose Lactic Acid Calcium Phosphorus Magnesium Total Bilirubin AST ALT Alkaline Phosphatase C-Reactive Protein 14.2 H Total Protein Albumin Urine Color Urine Appearance Urine pH Ur Specific [place] Urine Protein Urine Glucose (UA) Urine Ketones Urine Blood Urine Nitrite Urine Bilirubin Urine Urobilinogen Ur Leukocyte Esterase Urine RBC 3-5 Urine WBC 20-25 Ur Epithelial Cells 3-5 Urine Mucus 2+ 01/25/17 01/26/17 01/26/17 19:30 07:35 07:35 WBC 35.3 H* RBC 4.71 Hgb 14.1 D Hct 43.5 MCV 92.3 MCH 30.0 MCHC 32.5 RDW 14.6 Plt Count 238 MPV 8.9 Total Counted 100 Neutrophils % No Result Required. Neutrophils % (Manual) 79 Band Neuts % (Manual) Lymphocytes % No Result Required. Lymphocytes % (Manual) 11 D Monocytes % (Manual) 7 Eosinophils % (Manual) 1 Basophils % (Manual) 2 Myelocytes % (Man) Platelet Estimate Adequate Platelet Comment ESR Sodium 138 Potassium 3.4 L Chloride 103 Carbon Dioxide 26 Anion Gap 9 BUN 15 D Creatinine 1.2 Creat Clearance w eGFR > 60 Random Glucose 85 D Lactic Acid 1.1 Calcium 8.4 L Phosphorus 3.3 Magnesium 2.3 Total Bilirubin 0.8 AST 15 ALT 28 D Alkaline Phosphatase 124 H C-Reactive Protein Total Protein 6.5 Albumin 2.7 L Urine Color Urine Appearance Urine pH Ur Specific [place] Urine Protein Urine Glucose (UA) Urine Ketones Urine Blood Urine Nitrite Urine Bilirubin Urine Urobilinogen Ur Leukocyte Esterase Urine RBC Urine WBC Ur Epithelial Cells Urine Mucus Physical Exam: NAD , AAOX3 Cv : RRR, NO MRG, NO JVD lungs : CTAB ext : no edema ABd: obese , soft, NT. ND , NL BS : Nl hair distribution, NL penis , no lesions on skin. Enlarged R tonya-scrotum , enlarged tender R testicle. enlarged tender R epididymis . L testicle withno enlargement , L eididymys with enlargement but not tender. . Rectal exam, limited due to pt position, pain with inserting examiner finger, I could not reach prostate to evaluate Assessment/Plan: 61 y/o gentleman with h/o CAD s/p CABG and HL who was diagnosed with ESBL epididymitis on 01/20 and this time presented with worsening sx . 1- R ESBL epididymoorchitis: US form 01/20 reviewed. No evidence of sepsis but withvery elevated white count - follow US report to R/O abscess - cont meropenem pending ID consult - Seen by URO. - Cont IVF - follow CBC - tramadol fro pain, working 2- h/o CAD : - Cont ASA and plavix - hold metorpolol due to borderline BP. 3- h/o HL: cont niacin and statin DVT PX : Lovenox Visit type - Emergency Visit Emergency Visit: Yes ED Registration Date: 01/25/17 Care time: The patient presented to the Emergency Department on the above date and was hospitalized for further evaluation of their emergent condition. - New Patient This patient is new to me today: Yes Date on this admission: 01/26/17 - Critical Care Critical Care patient: No
[2017-01-26] MEDS ORDERED: POTASSIUM CHLORIDE TABS 20 MEQ TABLET.ER (FP) PO ONE (11:15)
[2017-01-26] MEDS ORDERED: PIPERACILLIN/TAZOB 3.375 GM 3.375 GM in DEXTROSE 5%-WATER - 50 ML IVPB SCH (13:30)
--- NOTE | 2017-01-26 13:32 | CON.ID ---
Consult Consult Specialty:: infectious diseases Reason for Consultation:: leukocytosis,epididymitis - History of Present Illness Chief Complaint: pain rt testes History of Present Illness: 61M w/ hx of CAD s/p CABG x 3 vessel and HLD admitted with right testicular pain. Pt reports that he went to the ED on 01/20 where he was diagnosed with epididymitis and a UTI, and discharged home on a course of levaquin and motrin. Pt states that his sxs did not resolve and the motrin barely helped. Yesterday, the pt was called and notified that the urine cultures grew E. coli ESBL that was resistant to levaquin, and was told to switch abx to nitrofurantoin. However , despite taking 3 doses of nitrofurantoin, his pain was too severe, patient denies any other symptoms currently his main complaints is of pain and swellingand now patient has got scrotal support patient denies any recent sexual history - History Source History Provided By: Patient - Past Medical History Cardio/Vascular: Yes: CAD, HTN, Hyperlipdemia - Alcohol/Substance Use Hx Alcohol Use: No - Smoking History Smoking history: Current every day smoker Have you smoked in the past 12 months: Yes Aproximately how many cigarettes per day: 10 If you are a former smoker, when did you quit?: 3 days ago Home Medications - Allergies Allergies/Adverse Reactions: Allergies Allergy/AdvReac Type Severity Reaction Status Date / Time No Known Drug Allergies Allergy Verified 01/25/17 17:12 bananas Allergy Uncoded 01/25/17 17:12 - Home Medications Home Medications: Ambulatory Orders Simvastatin [Zocor -] 20 mg PO HS 02/13/12 Aspirin 81 mg PO DAILY 04/17/13 Metoprolol Tartrate [Lopressor -] 25 mg PO BID 04/17/13 Clopidogrel Bisulfate [Plavix -] 75 mg PO DAILY #30 tablet 07/18/16 Niacin (Inositol Niacinate) [Niacin 500 mg Capsule] 500 mg PO DAILY 07/18/16 Nitroglycerin [Nitrostat] 0.4 mg SL PRN PRN 07/18/16 Ibuprofen [Motrin -] 600 mg PO QID #28 tablet 01/20/17 Nitrofurantoin Macrocrystal [Nitrofurantoin] 100 mg PO BID #14 capsule 01/24/17 Review of Systems - Review of Systems Constitutional: reports: Fever Eyes: reports: No Symptoms HENT: reports: No Symptoms Neck: reports: No Symptoms Cardiovascular: reports: No Symptoms Respiratory: reports: No Symptoms Gastrointestinal: reports: No Symptoms Genitourinary: reports: Testicular Pain, Other Musculoskeletal: reports: No Symptoms Integumentary: reports: No Symptoms Neurological: reports: No Symptoms Endocrine: reports: No Symptoms Hematology/Lymphatic: reports: No Symptoms Psychiatric: reports: No Symptoms Physical Exam Vital Signs: Vital Signs Temperature 97.8 F 01/26/17 06:00 Pulse Rate 79 01/26/17 06:00 Respiratory Rate 16 01/25/17 22:22 Blood Pressure 117/70 01/26/17 06:00 O2 Sat by Pulse Oximetry (%) 99 01/25/17 17:12 Constitutional: Yes: Well Nourished, Calm, Moderate Distress Eyes: Yes: Conjunctiva Clear HENT: Yes: Atraumatic, Normocephalic Neck: Yes: Supple, Trachea Midline Cardiovascular: Yes: Regular Rate and Rhythm Respiratory: Yes: Regular, CTA Bilaterally Gastrointestinal: Yes: Normal Bowel Sounds, Soft Renal/: Yes: Scrotal Edema (rt side), Other (rt sided epidydimitis) Musculoskeletal: Yes: WNL Extremities: Yes: WNL Neurological: Yes: Alert, Oriented Psychiatric: Yes: Alert, Oriented Labs: CBC, BMP 01/26/17 07:35 01/26/17 07:35 Imaging - Results Ultrasound: Report Reviewed, Image Reviewed Assessment/Plan #Epididymitis #UTI #CAD #HLD patient with epidydimitis post uti which probably might be the cause plan will start patient on ertapenam continue scrotal support rest as per primary team
[2017-01-26] MEDS ORDERED: CIPROFLOXACIN 400 MG/D5W 200 ML IVPB SCH (13:45)
[2017-01-26] MEDS: ERTAPENEM SODIUM 1 GM in SODIUM CHLORIDE 50 ML IVPB SCH (14:35)
[2017-01-26] MEDS ORDERED: MEROPENEM 1 GM in DEXTROSE 5%-WATER - 100 ML IVPB SCH (18:00)
[2017-01-26] MEDS: ATORVASTATIN CA 10 MG TABLET (FP) PO SCH (21:27)
[2017-01-26] MEDS: NIACIN 500 MG TABLET PO SCH (21:28)
[2017-01-27] MEDS: traMADol HCL 50 MG TABLET PO PRN ×2 (01:51→08:05)
[2017-01-27] MEDS: SODIUM CHLORIDE 1,000 ML IV SCH (08:06)
[2017-01-27 08:56] LABS: BASOPHIL 0.7 % (0-2.0); EOSINOPHIL 2.3 % (0-4.5); MCH 30.1 pg (25.7-33.7); MCHC 31.7 g/dl (32.0-35.9); MEAN CELL VOLUME 94.8 fl (80-96); MEAN PLT VOLUME 9.3 fl (7.5-11.1); NEUTROPHILS 70.3 % (42.8-82.8); PLATELET COUNT 245 K/MM3 (134-434); RDW 14.8 % (11.9-15.9); WHITE BLOOD COUNT 19.2 K/mm3 (4.0-10.0)
[2017-01-27 09:11] LABS: ANION GAP 10 (8-16); CALCIUM 8.3 mg/dL (8.5-10.1); CO2 27 mmol/L (21-32); GLUCOSE,RANDOM 87 mg/dL (74-106)
[2017-01-27] MEDS ORDERED: PT OWN MED DRAWER 7, Y5N ONE ×2 (09:48→22:19)
[2017-01-27] MEDS: ENOXAPARIN NA (PORCINE) 40 MG/0.4 ML DISP.SYRIN SQ SCH (09:53)
[2017-01-27] MEDS: CLOPIDOGREL BISULFATE 75 MG TABLET (FP) PO SCH (09:53)
[2017-01-27] MEDS: ASPIRIN 81 MG CHEWABLE TABLETS PO SCH (09:53)
[2017-01-27] MEDS: ERTAPENEM SODIUM 1 GM in SODIUM CHLORIDE 50 ML IVPB SCH (09:53)
[2017-01-27] MEDS ORDERED: morphine CARPU-JECT 2 MG/1 ML DISP.SYRIN IVPUSH PRN (10:19)
[2017-01-27] MEDS: oxyCODONE HCL 5 MG TABLET PO PRN ×2 (11:11→19:44)
[2017-01-27] MEDS: ACETAMINOPHEN 325 MG TABLET (FP) PO PRN ×2 (11:12→19:43)
--- NOTE | 2017-01-27 14:18 | PN ---
Teaching Attending Note Name of Resident: Gino Marroquin ATTENDING PHYSICIAN STATEMENT I saw and evaluated the patient. I reviewed the resident's note and discussed the case with the resident. I agree with the resident's findings and plan as documented. SUBJECTIVE: No fever or chills. has R scrotal pain , that's affecting his gait OBJECTIVE: NAD, AAOX3 Cv : RRR, NO MRG, NO JVD lungs: CTAB Ext: no edema ABd: obese, soft, NT. ND , NL BS : Nl hair distribution, NL penis, no lesions on skin. Enlarged R tonya-scrotum , enlarged tender R testicle. enlarged tender R epididymis . L testicle with no enlargement , L eididymys with enlargement but not tender. Assessment/Plan: 61 y/o gentleman with h/o CAD s/p CABG and HL who was diagnosed with ESBL epididymitis on 01/20 and this time presented with worsening sx . 1- R ESBL epididymoorchitis: leukocytosis slightly improved No abscess formation - cont ertapenem day 2 - Dc IVF - follow CBC - addd oxycodone and morphine and dc tramadol 2- H/o CAD : - Cont ASA and plavix - can resume metorpolol if BP is elevated 3- h/o HL: cont niacin and statin DVT PX : Lovenox HLOC
--- NOTE | 2017-01-27 18:54 | PN ---
Progress Note, Physician History of Present Illness: patient doing well no issues scrotum feels better wbc trending down - Current Medication List Current Medications: Active Medications Acetaminophen (Tylenol -) 325 mg PO Q4H PRN PRN Reason: PAIN Stop: 01/30/17 10:47 Last Admin: 01/27/17 11:12 Dose: 325 mg Aspirin (Asa -) 81 mg PO DAILY [facility] Last Admin: 01/27/17 09:53 Dose: 81 mg Atorvastatin Calcium (Lipitor -) 10 mg PO HS [facility] Last Admin: 01/26/17 21:27 Dose: 10 mg Clopidogrel Bisulfate (Plavix -) 75 mg PO DAILY [facility] Last Admin: 01/27/17 09:53 Dose: 75 mg Enoxaparin Sodium (Lovenox -) 40 mg SQ DAILY [facility] Last Admin: 01/27/17 09:53 Dose: 40 mg Ertapenem 1 gm/ Sodium (Chloride) 50 mls @ 50 mls/hr IVPB DAILY [facility] PRN Reason: Protocol Last Admin: 01/27/17 09:53 Dose: 50 mls/hr Morphine Sulfate (Morphine Injection -) 1 mg IVPUSH Q4H PRN PRN Reason: PAIN Niacin (Niacin) 500 mg PO [facility] Last Admin: 01/26/17 21:28 Dose: 500 mg Oxycodone HCl (Roxicodone -) 5 mg PO Q4H PRN PRN Reason: PAIN Last Admin: 01/27/17 11:11 Dose: 5 mg - Objective Vital Signs: Vital Signs Temperature 97.6 F 01/27/17 13:51 Pulse Rate 60 01/27/17 13:51 Respiratory Rate 20 01/27/17 13:51 Blood Pressure 111/52 01/27/17 13:51 O2 Sat by Pulse Oximetry (%) 97 01/27/17 09:00 Constitutional: Yes: No Distress, Calm Cardiovascular: Yes: Regular Rate and Rhythm Respiratory: Yes: Regular, CTA Bilaterally Gastrointestinal: Yes: Normal Bowel Sounds, Soft Genitourinary: Yes: Scrotal Edema, Other (epididymitis) Musculoskeletal: Yes: WNL Extremities: Yes: WNL Neurological: Yes: Alert, Oriented Labs: CBC, BMP 01/27/17 07:40 01/27/17 07:40 Assessment/Plan #Epididymitis #UTI #CAD #HLD plan will start patient on ertapenam continue scrotal support rest as per primary team
--- NOTE | 2017-01-27 19:38 | PN ---
Physical Exam: SUBJECTIVE: Patient seen and examined. No acute events overnight. Pt reports that pain is not adequately controlled. It is 10/10 when walking to bathroom, and 5/10 at rest. He denies fevers, chills , SOB, chest pain, abdominal pain, n/v/d/c, and any urinary symptoms. OBJECTIVE: Vital Signs Period Temp Pulse Resp BP Sys/Harvey Pulse Ox Last 24 Hr 97.6 F-98.2 F 60-76 18-20 110-118/52-60 97-97 GENERAL: The patient is awake, alert, and fully oriented, in no acute distress. HEAD: Normal with no signs of trauma. EYES: PERRL, extraocular movements intact, sclera anicteric, conjunctiva clear. No ptosis. ENT: Ears normal, nares patent, oropharynx clear without exudates, moist mucous membranes. NECK: Trachea midline, full range of motion, supple. LUNGS: Breath sounds equal, clear to auscultation bilaterally, no wheezes, no crackles, no accessory muscle use. HEART: Regular rate and rhythm, S1, S2 without murmur, rub or gallop. ABDOMEN: Soft, nontender, nondistended, normoactive bowel sounds, no guarding, no rebound, no hepatosplenomegaly, no masses. EXTREMITIES: 2+ pulses, warm, well-perfused, no edema. NEUROLOGICAL: Cranial nerves II through XII grossly intact. Normal speech, gait not observed. PSYCH: Normal mood, normal affect. SKIN: Warm, dry, normal turgor, no rashes or lesions noted : enlarged, swollen, firm, and very tender right testicle and epididymis. Left testicle is NT, normal size. Laboratory Results - last 24 hr 01/27/17 01/27/17 07:40 07:40 WBC 19.2 H D RBC 4.66 Hgb 14.0 Hct 44.2 MCV 94.8 MCH 30.1 MCHC 31.7 L RDW 14.8 Plt Count 245 MPV 9.3 Neutrophils % 70.3 Lymphocytes % 17.6 D Monocytes % 9.1 Eosinophils % 2.3 D Basophils % 0.7 Sodium 140 Potassium 4.5 D Chloride 103 Carbon Dioxide 27 Anion Gap 10 BUN 14 Creatinine 1.0 Random Glucose 87 Calcium 8.3 L Active Medications Generic Name Dose Route Start Last Admin Trade Name Freq PRN Reason Stop Dose Admin Acetaminophen 325 mg 01/27/17 10:48 01/27/17 11:12 Tylenol - PO 01/30/17 10:47 325 mg Q4H PRN Administration PAIN Aspirin 81 mg 01/26/17 10:00 01/27/17 09:53 Asa - PO 81 mg DAILY JESSICA Administration Atorvastatin Calcium 10 mg 01/26/17 22:00 01/26/17 21:27 Lipitor - PO 10 mg HS JESSICA Administration Clopidogrel Bisulfate 75 mg 01/26/17 10:00 01/27/17 09:53 Plavix - PO 75 mg DAILY JESSICA Administration Enoxaparin Sodium 40 mg 01/26/17 10:00 01/27/17 09:53 Lovenox - SQ 40 mg DAILY JESSICA Administration Ertapenem 1 gm/ Sodium 50 mls @ 50 mls/hr 01/26/17 13:45 01/27/17 09:53 Chloride IVPB 50 mls/hr DAILY JESSICA Administration Protocol Morphine Sulfate 1 mg 01/27/17 10:19 Morphine Injection - IVPUSH Q4H PRN PAIN Niacin 500 mg 01/26/17 22:00 01/26/17 21:28 Niacin PO 500 mg HS JESSICA Administration Oxycodone HCl 5 mg 01/27/17 10:48 01/27/17 11:11 Roxicodone - PO 5 mg Q4H PRN Administration PAIN ASSESSMENT/PLAN: 61M w/ hx of CAD s/p CABG x 3 vessel, HLD, and recent ED visit for epididymitis (treated with levaquin until Ucx showed resistance) presenting with acute right testicular pain, found to have a leukocytosis of 41, an ESR of 60, admitted for unresolved UTI and epididymitis. #Epididymitis -US scrotum: consistent with R epididymitis -urology on board, recs appreciated -continue ertapenem 1g qd per ID -ID consult, Dr. Liu on board, recs appreciated -f/u Ucx and Bcx -pain control with percocet and morphine PRN, monitor -wbc trending down, now 19, down from 41 on admission. continue trending #UTI -pt complaining of frequency, but no dysuria or urgency -UA shows 1+ blood, ketones, protein, and leukocyte esterase, and 20-25 wbc -continue ertapenem 1g qd per ID -f/u Ucx and Bcx -trend wbc -isolation precautions for ESBL #CAD -continue home ASA 81 and plavix 75 -lopressor 25 BID held due to normal BP #HLD -continue home niacin 500 and zocor 20 #Diabetes Screen -pt has RFs including CAD, HLD, and obesity -f/u Hgba1c #FEN/ppx -no fluids -electrolytes wnl -regular diet -no GI ppx indicated -lovenox 40 Gino Marroquin MD PGY1 Visit type - Emergency Visit Emergency Visit: Yes ED Registration Date: 01/25/17 Care time: The patient presented to the Emergency Department on the above date and was hospitalized for further evaluation of their emergent condition. - New Patient This patient is new to me today: No - Critical Care Critical Care patient: No
[2017-01-27] MEDS: NIACIN 500 MG TABLET PO SCH (22:25)
[2017-01-27] MEDS: ATORVASTATIN CA 10 MG TABLET (FP) PO SCH (22:25)
[2017-01-28] MEDS: ACETAMINOPHEN 325 MG TABLET (FP) PO PRN ×3 (00:17→22:39)
[2017-01-28] MEDS: oxyCODONE HCL 5 MG TABLET PO PRN ×3 (00:18→22:37)
[2017-01-28 08:42] LABS: BASOPHIL 0.9 % (0-2.0); EOSINOPHIL 3.1 % (0-4.5); MCH 30.1 pg (25.7-33.7); MCHC 32.5 g/dl (32.0-35.9); MEAN CELL VOLUME 92.5 fl (80-96); MEAN PLT VOLUME 9.1 fl (7.5-11.1); PLATELET COUNT 275 K/MM3 (134-434); RDW 14.5 % (11.9-15.9); WHITE BLOOD COUNT 13.1 K/mm3 (4.0-10.0)
[2017-01-28] MEDS ORDERED: PT OWN MED DRAWER 7, Y5N ONE ×2 (09:04→22:34)
[2017-01-28] MEDS: CLOPIDOGREL BISULFATE 75 MG TABLET (FP) PO SCH (09:07)
[2017-01-28] MEDS: ASPIRIN 81 MG CHEWABLE TABLETS PO SCH (09:07)
[2017-01-28] MEDS: ENOXAPARIN NA (PORCINE) 40 MG/0.4 ML DISP.SYRIN SQ SCH (09:07)
[2017-01-28] MEDS: ERTAPENEM SODIUM 1 GM in SODIUM CHLORIDE 50 ML IVPB SCH (09:07)
[2017-01-28] MEDS ORDERED: DOCUSATE SODIUM 100 MG CAPSULE (FP) PO SCH (11:15)
--- NOTE | 2017-01-28 13:51 | PN ---
Progress Note, Physician History of Present Illness: patient doing well no issues scrotum feels better wbc trending down no complaints - Current Medication List Current Medications: Active Medications Acetaminophen (Tylenol -) 325 mg PO Q4H PRN PRN Reason: PAIN Stop: 01/30/17 10:47 Last Admin: 01/28/17 07:30 Dose: 325 mg Aspirin (Asa -) 81 mg PO DAILY [facility] Last Admin: 01/28/17 09:07 Dose: 81 mg Atorvastatin Calcium (Lipitor -) 10 mg PO HS [facility] Last Admin: 01/27/17 22:25 Dose: 10 mg Clopidogrel Bisulfate (Plavix -) 75 mg PO DAILY [facility] Last Admin: 01/28/17 09:07 Dose: 75 mg Docusate Sodium (Colace -) 100 mg PO DAILY [facility] Last Admin: 01/28/17 12:38 Dose: 100 mg Enoxaparin Sodium (Lovenox -) 40 mg SQ DAILY [facility] Last Admin: 01/28/17 09:07 Dose: 40 mg Ertapenem 1 gm/ Sodium (Chloride) 50 mls @ 50 mls/hr IVPB DAILY [facility] PRN Reason: Protocol Last Admin: 01/28/17 09:07 Dose: 50 mls/hr Morphine Sulfate (Morphine Injection -) 1 mg IVPUSH Q4H PRN PRN Reason: PAIN Niacin (Niacin) 500 mg PO [facility] Last Admin: 01/27/17 22:25 Dose: 500 mg Oxycodone HCl (Roxicodone -) 5 mg PO Q4H PRN PRN Reason: PAIN Last Admin: 01/28/17 07:29 Dose: 5 mg - Objective Vital Signs: Vital Signs Temperature 98 F 01/28/17 09:13 Pulse Rate 71 01/28/17 09:13 Respiratory Rate 20 01/28/17 09:13 Blood Pressure 110/59 01/28/17 09:13 O2 Sat by Pulse Oximetry (%) 98 01/28/17 09:00 Constitutional: Yes: No Distress HENT: Yes: Atraumatic Cardiovascular: Yes: Regular Rate and Rhythm Respiratory: Yes: Regular, CTA Bilaterally Gastrointestinal: Yes: Normal Bowel Sounds, Soft Genitourinary: Yes: Other Musculoskeletal: Yes: WNL Extremities: Yes: WNL Neurological: Yes: Alert, Oriented Psychiatric: Yes: Alert Labs: CBC, BMP 01/28/17 07:15 10/09/17 07:40 Assessment/Plan #Epididymitis #UTI #CAD #HLD plan continue abx scrotal support will need a total of 14 days rest as per primary
--- NOTE | 2017-01-28 16:02 | PN ---
Physical Exam: SUBJECTIVE: Patient seen and examined. No acute events overnight. Pt reports that pain has decreased on new pain medication regimen. He denies improving swelling. He denies fevers, chills, chest pain, SOB, n/v/d, urinary symptoms, but endorses constipation. OBJECTIVE: Vital Signs Period Temp Pulse Resp BP Sys/Harvey Pulse Ox Last 24 Hr 97.5 F-98.4 F 66-76 18-22 93-116/54-68 98-98 GENERAL: The patient is awake, alert, and fully oriented, in no acute distress. HEAD: Normal with no signs of trauma. EYES: PERRL, extraocular movements intact, sclera anicteric, conjunctiva clear. No ptosis. ENT: Ears normal, nares patent, oropharynx clear without exudates, moist mucous membranes. NECK: Trachea midline, full range of motion, supple. LUNGS: Breath sounds equal, clear to auscultation bilaterally, no wheezes, no crackles, no accessory muscle use. HEART: Regular rate and rhythm, S1, S2 without murmur, rub or gallop. ABDOMEN: Soft, nontender, nondistended, normoactive bowel sounds, no guarding, no rebound, no hepatosplenomegaly, no masses. EXTREMITIES: 2+ pulses, warm, well-perfused, no edema. NEUROLOGICAL: Cranial nerves II through XII grossly intact. Normal speech, gait not observed. PSYCH: Normal mood, normal affect. SKIN: Warm, dry, normal turgor, no rashes or lesions noted : enlarged, swollen, firm, and very tender right testicle and epididymis but decreased tenderness compared to yesterday. Left testicle is NT, normal size. Laboratory Results - last 24 hr 01/28/17 01/28/17 07:15 07:15 WBC 13.1 H D RBC 4.70 Hgb 14.1 Hct 43.5 MCV 92.5 MCH 30.1 MCHC 32.5 RDW 14.5 Plt Count 275 MPV 9.1 Neutrophils % 68.0 Lymphocytes % 18.3 Monocytes % 9.7 Eosinophils % 3.1 Basophils % 0.9 Hemoglobin A1c % 6.2 H D Active Medications Generic Name Dose Route Start Last Admin Trade Name Freq PRN Reason Stop Dose Admin Acetaminophen 325 mg 01/27/17 10:48 01/28/17 07:30 Tylenol - PO 01/30/17 10:47 325 mg Q4H PRN Administration PAIN Aspirin 81 mg 01/26/17 10:00 01/28/17 09:07 Asa - PO 81 mg DAILY JESSICA Administration Atorvastatin Calcium 10 mg 01/26/17 22:00 01/27/17 22:25 Lipitor - PO 10 mg HS JESSICA Administration Clopidogrel Bisulfate 75 mg 01/26/17 10:00 01/28/17 09:07 Plavix - PO 75 mg DAILY JESSICA Administration Docusate Sodium 100 mg 01/28/17 22:00 Colace - PO BID JESSICA Enoxaparin Sodium 40 mg 01/26/17 10:00 01/28/17 09:07 Lovenox - SQ 40 mg DAILY JESSICA Administration Ertapenem 1 gm/ Sodium 50 mls @ 50 mls/hr 01/26/17 13:45 01/28/17 09:07 Chloride IVPB 50 mls/hr DAILY [facility] Administration Protocol Morphine Sulfate 1 mg 01/27/17 10:19 Morphine Injection - IVPUSH Q4H PRN PAIN Niacin 500 mg 01/26/17 22:00 01/27/17 22:25 Niacin PO 500 mg HS JESSICA Administration Oxycodone HCl 5 mg 01/27/17 10:48 01/28/17 07:29 Roxicodone - PO 5 mg Q4H PRN Administration PAIN Senna 1 tab 01/28/17 22:00 Senna - PO BID [facility] ASSESSMENT/PLAN: 61M w/ hx of CAD s/p CABG x 3 vessel, HLD, and recent ED visit for epididymitis (treated with levaquin until Ucx showed resistance) presenting with acute right testicular pain, found to have a leukocytosis of 41, an ESR of 60, admitted for unresolved UTI and epididymitis. #Epididymitis -US scrotum: consistent with R epididymitis -urology on board, recs appreciated -continue ertapenem 1g qd per ID -ID consult, Dr. Liu on board, recs appreciated -f/u Ucx and Bcx -pain control with percocet. morphine discontinued. -wbc trending down, now 13.1, down from 41 on admission. continue trending -no fever, continue monitoring temps #UTI -pt complaining of frequency, but no dysuria or urgency -UA shows 1+ blood, ketones, protein, and leukocyte esterase, and 20-25 wbc -continue ertapenem 1g qd per ID -f/u Ucx and Bcx -trend wbc -isolation precautions for ESBL #CAD -continue home ASA 81 and plavix 75 -lopressor 25 BID held due to normal BP #HLD -continue home niacin 500 and zocor 20 #Diabetes Screen -pt has RFs including CAD, HLD, and obesity -Hgba1c: 6.2 -pt meets criteria for pre-diabetes, pt to be educated about lifestyle modifications #FEN/ppx -no fluids -electrolytes wnl -regular diet -no GI ppx indicated -lovenox 40 Gino Marroquin MD PGY1 Visit type - Emergency Visit Emergency Visit: Yes ED Registration Date: 01/25/17 Care time: The patient presented to the Emergency Department on the above date and was hospitalized for further evaluation of their emergent condition. - New Patient This patient is new to me today: No - Critical Care Critical Care patient: No
[2017-01-28] MEDS ORDERED: PICC LINE 8 ML FLUSH PROTOCOL IVPUSH PRN (17:42)
--- NOTE | 2017-01-28 19:13 | PN ---
Teaching Attending Note Name of Resident: Gino Marroquin ATTENDING PHYSICIAN STATEMENT I saw and evaluated the patient. I reviewed the resident's note and discussed the case with the resident. I agree with the resident's findings and plan as documented. SUBJECTIVE: no fever or chills. improved pain in scrotum OBJECTIVE: NAD, AAOX3 Cv : RRR, NO MRG, NO JVD lungs: CTAB Ext: no edema ABd: obese, soft, NT. ND , NL BS : Nl hair distribution, NL penis, no lesions on skin. Enlarged R tonya-scrotum ( better ) , enlarged tender R testicle ( improved ). enlarged tender R epididymis . L testicle with no enlargement Assessment/Plan: 61 y/o gentleman with h/o CAD s/p CABG and HL who was diagnosed with ESBL epididymitis on 01/20 and this time presented with worsening sx . 1- R ESBL epididymoorchitis: leukocytosis improved No abscess formation - cont ertapenem day 3 /14 - follow CBC - Cont oxycodone. CAn dc morphine tomorrow 2- H/o CAD: - Cont ASA and plavix - can resume metorpolol if BP is elevated or at dc 3- H/o HL: cont niacin and statin DVT PX : Lovenox HLOC hopefully tomorrow if WBC cont to improve, can dc home with a PICC to complete Abx
[2017-01-28] MEDS: DOCUSATE SODIUM 100 MG CAPSULE (FP) PO SCH (22:37)
[2017-01-28] MEDS: ATORVASTATIN CA 10 MG TABLET (FP) PO SCH (22:39)
[2017-01-28] MEDS: SENNOSIDES 8.6MG TABLET (FP) PO SCH (22:39)
[2017-01-28] MEDS: NIACIN 500 MG TABLET PO SCH (22:40)
[2017-01-29 07:27] LABS: BASOPHIL 0.8 % (0-2.0); EOSINOPHIL 2.7 % (0-4.5); MCH 30.5 pg (25.7-33.7); MEAN CELL VOLUME 92.4 fl (80-96); MEAN PLT VOLUME 9.2 fl (7.5-11.1); NEUTROPHILS 65.5 % (42.8-82.8); PLATELET COUNT 293 K/MM3 (134-434); RDW 14.6 % (11.9-15.9); WHITE BLOOD COUNT 12.4 K/mm3 (4.0-10.0)
[2017-01-29 08:36] LABS: ANION GAP 9 (8-16); CALCIUM 8.5 mg/dL (8.5-10.1); CO2 27 mmol/L (21-32); GLUCOSE,RANDOM 88 mg/dL (74-106)
[2017-01-29] MEDS ORDERED: POLYETHYLENE GLYCOL 3350 119 GM BTL PO SCH (11:15)
[2017-01-29] MEDS: CLOPIDOGREL BISULFATE 75 MG TABLET (FP) PO SCH (11:34)
[2017-01-29] MEDS: DOCUSATE SODIUM 100 MG CAPSULE (FP) PO SCH (11:34)
[2017-01-29] MEDS: SENNOSIDES 8.6MG TABLET (FP) PO SCH (11:34)
[2017-01-29] MEDS: ERTAPENEM SODIUM 1 GM in SODIUM CHLORIDE 50 ML IVPB SCH (11:34)
[2017-01-29] MEDS: ASPIRIN 81 MG CHEWABLE TABLETS PO SCH (11:34)
[2017-01-29] MEDS: oxyCODONE HCL 5 MG TABLET PO PRN (11:39)
[2017-01-29] MEDS: ACETAMINOPHEN 325 MG TABLET (FP) PO PRN (11:39)
--- NOTE | 2017-01-29 12:57 | PN ---
Teaching Attending Note Name of Resident: Gino Marroquin ATTENDING PHYSICIAN STATEMENT I saw and evaluated the patient. I reviewed the resident's note and discussed the case with the resident. I agree with the resident's findings and plan as documented. SUBJECTIVE: No new changes. No fever. OBJECTIVE: Vital Signs Temperature 98.0 F 01/29/17 06:12 Pulse Rate 77 01/29/17 06:12 Respiratory Rate 20 01/29/17 06:12 Blood Pressure 111/68 01/29/17 06:12 O2 Sat by Pulse Oximetry (%) 98 01/28/17 22:00 CBCD WBC 12.4 K/mm3 (4.0-10.0) H 01/29/17 06:20 RBC 4.65 M/mm3 (4.00-5.60) 01/29/17 06:20 Hgb 14.2 GM/dL (11.7-16.9) 01/29/17 06:20 Hct 42.9 % (35.4-49) 01/29/17 06:20 MCV 92.4 fl (80-96) 01/29/17 06:20 MCHC 33.0 g/dl (32.0-35.9) 01/29/17 06:20 RDW 14.6 % (11.9-15.9) 01/29/17 06:20 Plt Count 293 K/MM3 (134-434) 01/29/17 06:20 MPV 9.2 fl (7.5-11.1) 01/29/17 06:20 CMP Sodium 139 mmol/L (136-145) 01/29/17 06:20 Potassium 4.3 mmol/L (3.5-5.1) 01/29/17 06:20 Chloride 103 mmol/L (98-107) 01/29/17 06:20 Carbon Dioxide 27 mmol/L (21-32) 01/29/17 06:20 Anion Gap 9 (8-16) 01/29/17 06:20 BUN 12 mg/dL (7-18) 01/29/17 06:20 Creatinine 1.0 mg/dL (0.7-1.3) 01/29/17 06:20 Creat Clearance w eGFR > 60 (>60) 01/26/17 07:35 Random Glucose 88 mg/dL (74-106) 01/29/17 06:20 Calcium 8.5 mg/dL (8.5-10.1) 01/29/17 06:20 Total Bilirubin 0.8 mg/dL (0.2-1.0) 01/26/17 07:35 AST 15 U/L (15-37) 01/26/17 07:35 ALT 28 U/L (12-78) D 01/26/17 07:35 Alkaline Phosphatase 124 U/L (45-117) H 01/26/17 07:35 Total Protein 6.5 g/dl (6.4-8.2) 01/26/17 07:35 Albumin 2.7 g/dl (3.4-5.0) L 01/26/17 07:35 Current Medications Generic Name Dose Route Start Last Admin Trade Name Freq PRN Reason Stop Dose Admin Acetaminophen 325 mg 01/27/17 10:48 01/29/17 11:39 Tylenol - PO 01/30/17 10:47 325 mg Q4H PRN Administration PAIN Aspirin 81 mg 01/26/17 10:00 01/29/17 11:34 Asa - PO 81 mg DAILY JESSICA Administration Atorvastatin Calcium 10 mg 01/26/17 22:00 01/28/17 22:39 Lipitor - PO 10 mg HS JESSICA Administration Clopidogrel Bisulfate 75 mg 01/26/17 10:00 01/29/17 11:34 Plavix - PO 75 mg DAILY JESSICA Administration Docusate Sodium 100 mg 01/28/17 22:00 01/29/17 11:34 Colace - PO 100 mg BID JESSICA Administration IV Flush 8 ml 01/28/17 17:42 01/29/17 12:29 Picc Line Flush IVPUSH 8 ml PRN PRN Administration Protocol Ertapenem 1 gm/ Sodium 50 mls @ 50 mls/hr 01/26/17 13:45 01/29/17 11:34 Chloride IVPB 50 mls/hr DAILY JESSICA Administration Protocol Niacin 500 mg 01/26/17 22:00 01/28/17 22:40 Niacin PO 500 mg HS JESSICA Administration Oxycodone HCl 5 mg 01/27/17 10:48 01/29/17 11:39 Roxicodone - PO 5 mg Q4H PRN Administration PAIN Polyethylene Glycol 17 gm 01/29/17 11:15 01/29/17 12:44 Miralax (For Daily Use) - PO 17 gm BID JESSICA Administration Senna 1 tab 01/28/17 22:00 01/29/17 11:34 Senna - PO 1 tab BID JESSICA Administration Home Medications Medication Instructions Recorded Simvastatin [Zocor -] 20 mg PO HS 02/13/12 Aspirin 81 mg PO DAILY 04/17/13 Metoprolol Tartrate [Lopressor -] 25 mg PO BID 04/17/13 Clopidogrel Bisulfate [Plavix -] 75 mg PO DAILY #30 tablet 07/18/16 Niacin (Inositol Niacinate) 500 mg PO DAILY 07/18/16 [Niacin 500 mg Capsule] Nitroglycerin [Nitrostat] 0.4 mg SL PRN PRN 07/18/16 Ibuprofen [Motrin -] 600 mg PO QID #28 tablet 01/20/17 Nitrofurantoin Macrocrystal 100 mg PO BID #14 capsule 01/24/17 [Nitrofurantoin] PE: Per resident's note ASSESSMENT AND PLAN: Patient is a 61 y/o gentleman with h/o CAD s/p CABG and HL who was diagnosed with ESBL epididymitis on 01/20 and this time presented with worsening sx . #Acute Right ESBL Epididymitis with leukocytosis improving trending down , on IV antibiotic on Ertapenem, as per ID 10 more days for total of 14 days. Picc line insertion per IR. continue with home infusion of ertapanem, follow labs on a weekly basis, follow with as an outpatient. Discharge on oxycodone. US scrotum: consistent with R epididymitis; reviewed. Patient was seen by urologist as well in the hospital follow with urology as an outpatient. # H/o CAD: Cont ASA and plavix , continue home meds. # H/o HLD: cont niacin and statin
--- NOTE | 2017-01-29 13:54 | PN ---
Progress Note, Physician History of Present Illness: patient doing well no issues scrotum feels better wbc trending down no complaints - Current Medication List Current Medications: Active Medications Acetaminophen (Tylenol -) 325 mg PO Q4H PRN PRN Reason: PAIN Stop: 01/30/17 10:47 Last Admin: 01/29/17 11:39 Dose: 325 mg Aspirin (Asa -) 81 mg PO DAILY [facility] Last Admin: 01/29/17 11:34 Dose: 81 mg Atorvastatin Calcium (Lipitor -) 10 mg PO HS [facility] Last Admin: 01/28/17 22:39 Dose: 10 mg Clopidogrel Bisulfate (Plavix -) 75 mg PO DAILY [facility] Last Admin: 01/29/17 11:34 Dose: 75 mg Docusate Sodium (Colace -) 100 mg PO BID [facility] Last Admin: 01/29/17 11:34 Dose: 100 mg IV Flush (Picc Line Flush) 8 ml IVPUSH PRN PRN PRN Reason: Protocol Last Admin: 01/29/17 12:29 Dose: 8 ml Ertapenem 1 gm/ Sodium (Chloride) 50 mls @ 50 mls/hr IVPB DAILY JESSICA PRN Reason: Protocol Last Admin: 01/29/17 11:34 Dose: 50 mls/hr Niacin (Niacin) 500 mg PO HS [facility] Last Admin: 01/28/17 22:40 Dose: 500 mg Oxycodone HCl (Roxicodone -) 5 mg PO Q4H PRN PRN Reason: PAIN Last Admin: 01/29/17 11:39 Dose: 5 mg Polyethylene Glycol (Miralax (For Daily Use) -) 17 gm PO BID [facility] Last Admin: 01/29/17 12:44 Dose: 17 gm Senna (Senna -) 1 tab PO BID [facility] Last Admin: 01/29/17 11:34 Dose: 1 tab - Objective Vital Signs: Vital Signs Temperature 98.0 F 01/29/17 06:12 Pulse Rate 77 01/29/17 06:12 Respiratory Rate 20 01/29/17 09:00 Blood Pressure 111/68 01/29/17 06:12 O2 Sat by Pulse Oximetry (%) 98 01/29/17 09:00 Constitutional: Yes: No Distress, Calm Cardiovascular: Yes: Regular Rate and Rhythm Respiratory: Yes: Regular, CTA Bilaterally Gastrointestinal: Yes: Normal Bowel Sounds, Soft Musculoskeletal: Yes: WNL Extremities: Yes: WNL Neurological: Yes: Alert, Oriented Psychiatric: Yes: Alert, Oriented Labs: CBC, BMP 01/29/17 06:20 01/29/17 06:20 Assessment/Plan #Epididymitis #UTI #CAD #HLD plan patient can go home today with abx for 10 more days follow wbc if wbc goes high then will need reevalaution
[2017-01-29] MEDS ORDERED: ACETAMINOPHEN 325 MG TABLET (FP) PO ONE (14:15)
[2017-01-29] MEDS ORDERED: oxyCODONE HCL 5 MG TABLET PO ONE (14:15)
[2017-01-29 14:31] VITALS: BP 122/76; PULSE 71; TEMP 97.8
--- NOTE | 2017-01-29 16:38 | DS ---
Physical Exam: SUBJECTIVE: Patient seen and examined. No acute events overnight. Pt reports decreased swelling and improved pain control. He endorses constipation. He denies fevers, chills, chest pain, SOB, n/ v/d, abdominal pain, and any urinary symptoms. OBJECTIVE: Vital Signs Period Temp Pulse Resp BP Sys/Harvey Pulse Ox Last 24 Hr 97.8 F-98.6 F 71-82 20-22 111-122/66-76 98-98 PHYSICAL EXAM ENERAL: The patient is awake, alert, and fully oriented, in no acute distress. HEAD: Normal with no signs of trauma. EYES: PERRL, extraocular movements intact, sclera anicteric, conjunctiva clear. No ptosis. ENT: Ears normal, nares patent, oropharynx clear without exudates, moist mucous membranes. NECK: Trachea midline, full range of motion, supple. LUNGS: Breath sounds equal, clear to auscultation bilaterally, no wheezes, no crackles, no accessory muscle use. HEART: Regular rate and rhythm, S1, S2 without murmur, rub or gallop. ABDOMEN: Soft, nontender, nondistended, normoactive bowel sounds, no guarding, no rebound, no hepatosplenomegaly, no masses. EXTREMITIES: 2+ pulses, warm, well-perfused, no edema. NEUROLOGICAL: Cranial nerves II through XII grossly intact. Normal speech, gait not observed. PSYCH: Normal mood, normal affect. SKIN: Warm, dry, normal turgor, no rashes or lesions noted : enlarged, firm, decreased swelling, decreased tenderness compared to yesterday. Left testicle is NT, normal size. LABS Laboratory Results - last 24 hr 01/29/17 01/29/17 06:20 06:20 WBC 12.4 H RBC 4.65 Hgb 14.2 Hct 42.9 MCV 92.4 MCH 30.5 MCHC 33.0 RDW 14.6 Plt Count 293 MPV 9.2 Neutrophils % 65.5 Lymphocytes % 21.5 Monocytes % 9.5 Eosinophils % 2.7 Basophils % 0.8 Sodium 139 Potassium 4.3 Chloride 103 Carbon Dioxide 27 Anion Gap 9 BUN 12 Creatinine 1.0 Random Glucose 88 Calcium 8.5 HOSPITAL COURSE: Date of Admission:01/25/17 Date of Discharge: 01/29/17 61M w/ hx of CAD s/p CABG, HLD, and recent ED presentation for ESBL epididymitis treated with levaquin which was later found to be resistant on urine culture sensitivities, who presented with unrelieved right testicular pain , found to have a leukocytosis of 41 and UA consistent with UTI, admitted for ESBL epididymitis. Pt was treated for 4 days with ertapenem. His wbc count dropped to 12, his pain was controlled with percocet, and his swelling decreased. Per ID, pt to go home on PICC line to finish a total of a 14 day course of ertapenem and f/u a wbc count to ensure normalization. Today, pt is stable, with normal vitals, improving symptoms, and is ready for discharge. -Gino Marroquin MD PGY1 Discharge Summary Reason For Visit: EPIDIDYMITITIS Condition: Stable - Instructions Diet, Activity, Other Instructions: You came to the hospital with right testicular pain and were found to have unresolved infection called epididymitis. You were treated with IV antibiotics, your white blood cell count has dropped, your swelling has been decreasing, and your pain has been controlled. Continue to take the antibiotics for 10 more days to completely resolve your infection. 1. Follow up with the Infectious Diseases physician, Dr. Liu, in two weeks. 2. Follow up with your PCP within two weeks. If you don't have one, we have referred you to our resident clinic. If you develop any new, worsening, or concerning symptoms, return to the ED. Referrals: Walt Stark MD [Staff Physician] - Priscila Liu MD [Staff Physician] - Disposition: HOME IV THERAPY - Home Medications Comprehensive Discharge Medication List: Ambulatory Orders Simvastatin [Zocor -] 20 mg PO HS 02/13/12 Aspirin 81 mg PO DAILY 04/17/13 Metoprolol Tartrate [Lopressor -] 25 mg PO BID 04/17/13 Clopidogrel Bisulfate [Plavix -] 75 mg PO DAILY #30 tablet 07/18/16 Niacin (Inositol Niacinate) [Niacin 500 mg Capsule] 500 mg PO DAILY 07/18/16 Nitroglycerin [Nitrostat] 0.4 mg SL PRN PRN 07/18/16 Ibuprofen [Motrin -] 600 mg PO QID #28 tablet 01/20/17 Docusate Sodium [Colace -] 100 mg PO BID #30 tab 01/29/17 Ertapenem Sodium - 1 Gram [Invanz (Pre-Docked)] 1 gm IVPB DAILY #10 bag Oxycodone HCl [Roxicodone -] 5 mg PO Q4H PRN #12 tablet MDD 4 01/29/17 Picc Line Flush [Picc Line Flush -] 8 ml IVPUSH PRN PRN #10 ml 01/29/17 Sennosides [Senna -] 1 tab PO BID #30 tablet 01/29/17 This patient is new to me today: No Emergency Visit: Yes ED Registration Date: 01/25/17 Care time: The patient presented to the Emergency Department on the above date and was hospitalized for further evaluation of their emergent condition. Critical Care patient: No
== END 2017-01-29 15:48 | disposition home or self-care (01) | DRG 728 ==
LOC: JER 17:09 → JERBED 19:14 → J6S 21:51
PROVIDERS: ADMIT Internal Medicine; ATTEND Internal Medicine
PROC: 02HV33Z Insertion of Infusion Device into Superior Vena Cava, Percutaneous Approach (ICD-10-PCS; principal; 2017-01-29)
DX: N45.1 Epididymitis (principal); N39.0 Urinary tract infection, site not specified; Z68.41 Body mass index [BMI] 40.0-44.9, adult; B96.29 Other Escherichia coli [E. coli] as the cause of diseases classified elsewhere; I25.10 Atherosclerotic heart disease of native coronary artery without angina pectoris; E78.5 Hyperlipidemia, unspecified; F17.210 Nicotine dependence, cigarettes, uncomplicated; D72.828 Other elevated white blood cell count; I10 Essential (primary) hypertension; E66.8 Other obesity; Z95.1 Presence of aortocoronary bypass graft
CPT/HCPCS: 36415; 36569; 76870-TC; 77001-TC; 80048; 80053; 81003; 81015; 83036; 83605; 83735; 84100; 85025; 85651; 86140; 87040; 87086; 99285-25; C1751

== ENCOUNTER 2019-04-21 04:23 | Emergency (ER) | payer OTHER ==
[2019-04-21 04:44] VITALS: BP 138/69; PULSE 91; TEMP 98.1; BMI 42.7
--- NOTE | 2019-04-21 04:53 | PDOC ---
History of Present Illness - General History Source: Patient Exam Limitations: No Limitations - History of Present Illness Initial Comments: 04/21/19 04:53 Patient is a 63M with history of CAD s/p cabg and hld here today complaining of possibly swallowing a foreign body. Patient states he was drinking ice water when he noticed a piece of plastic from his refrigerator in his glass. He then noticed a foreign body sensation, worse on the left side of his throat. Denies coughing, shortness of breath. Denies drooling. States that he was able to drink. Denies fevers, chills, nausea, vomiting. Denies chest pain. <Timmy Andres - Last Filed: 04/21/19 05:14> <Mary Talley - Last Filed: 04/21/19 19:44> - General Chief Complaint: Foreign Body (FB) Stated Complaint: SWALLOWED FOREIGN OBJECT Time Seen by Provider: 04/21/19 04:42 Past History - Past Medical History Anemia: No Asthma: No Cancer: No Cardiac Disorders: Yes (2011, tripple bypass) CVA: No COPD: No CHF: No Dementia: No Diabetes: No GI Disorders: No Disorders: No HTN: Yes (?) Hypercholesterolemia: Yes (MILD) Liver Disease: No Seizures: No Thyroid Disease: No - Surgical History Abdominal Surgery: No Appendectomy: No Cardiac Surgery: Yes (02/2012 3 vessel CABG) Cholecystectomy: No Lung Surgery: No Neurologic Surgery: No Orthopedic Surgery: No - Immunization History Immunization Up to Date: Yes - Psycho Social/Smoking Cessation Hx Smoking Status: Yes Smoking History: Current every day smoker Years of Tobacco Use: 30 Have you smoked in the past 12 months: Yes Number of Cigarettes Smoked Daily: 10 If you are a former smoker, when did you quit?: 3 days ago Information on smoking cessation initiated: No 'Breaking Loose' booklet given: 01/25/17 Hx Alcohol Use: Yes Drug/Substance Use Hx: No Substance Use Type: None Hx Substance Use Treatment: No <Timmy Andres - Last Filed: 04/21/19 05:14> <Mary Talley - Last Filed: 04/21/19 19:44> - Past Medical History Allergies/Adverse Reactions: Allergies Allergy/AdvReac Type Severity Reaction Status Date / Time No Known Drug Allergies Allergy Verified 04/21/19 04:44 bananas Allergy Uncoded 04/21/19 04:44 Home Medications: Ambulatory Orders Simvastatin [Zocor -] 20 mg PO HS 02/13/12 Aspirin 81 mg PO DAILY 04/17/13 Metoprolol Tartrate [Lopressor -] 25 mg PO BID 04/17/13 Clopidogrel Bisulfate [Plavix -] 75 mg PO DAILY #30 tablet 07/18/16 Niacin (Inositol Niacinate) [Niacin 500 mg Capsule] 500 mg PO DAILY 07/18/16 Nitroglycerin [Nitrostat] 0.4 mg SL PRN PRN 07/18/16 Ibuprofen [Motrin -] 600 mg PO QID #28 tablet 01/20/17 Docusate Sodium [Colace -] 100 mg PO BID #30 tab 01/29/17 Ertapenem Sodium - 1 Gram [Invanz (Pre-Docked)] 1 gm IVPB DAILY #10 bag Picc Line Flush [Picc Line Flush -] 8 ml IVPUSH PRN PRN #10 ml 01/29/17 Sennosides [Senna -] 1 tab PO BID #30 tablet 01/29/17 oxyCODONE HCL [Roxicodone -] 5 mg PO Q4H PRN #12 tablet MDD 4 01/29/17 Review of Systems - Review of Systems Able to Perform ROS?: Yes Comments:: 04/21/19 04:56 GENERAL/CONSTITUTIONAL: No fever or chills. No weakness. HEAD, EYES, EARS, NOSE AND THROAT: No change in vision. +sore throat. CARDIOVASCULAR: No chest pain or shortness of breath RESPIRATORY: No cough, wheezing, or hemoptysis. GASTROINTESTINAL: No nausea, vomiting, diarrhea or constipation. GENITOURINARY: No dysuria, frequency, or change in urination. MUSCULOSKELETAL: No joint or muscle swelling or pain. No neck or back pain. SKIN: No rash NEUROLOGIC: No headache, vertigo, loss of consciousness, or change in strength/ sensation. ALLERGIC/IMMUNOLOGIC: No hives or skin allergy. <Timmy Andres - Last Filed: 04/21/19 05:14> *Physical Exam - Vital Signs Last Vital Signs Temp Pulse Resp BP Pulse Ox 98.1 F 91 H 18 138/69 98 04/21/19 04:30 04/21/19 04:30 04/21/19 04:30 04/21/19 04:30 04/21/19 04:30 - Physical Exam 04/21/19 04:57 GENERAL: Awake, alert, and fully oriented, in no acute distress HEAD: No signs of trauma, normocephalic, atraumatic EYES: PERRLA, EOMI, sclera anicteric, conjunctiva clear ENT: Auricles normal inspection, hearing grossly normal, nares patent, oropharynx clear without exudates. Moist mucosa. No foreign body or laceration seen. NECK: Normal ROM, supple, no lymphadenopathy, JVD, or masses LUNGS: No distress, speaks full sentences, clear to auscultation bilaterally HEART: Regular rate and rhythm, normal S1 and S2, no murmurs, rubs or gallops, peripheral pulses normal and equal bilaterally. ABDOMEN: Soft, nontender, normoactive bowel sounds. No guarding, no rebound. No masses EXTREMITIES: Normal inspection, Normal range of motion, no edema. No clubbing or cyanosis. NEUROLOGICAL: Cranial nerves II through XII grossly intact. Normal speech, normal gait, no focal sensorimotor deficits SKIN: Warm, Dry, normal turgor, no rashes or lesions noted. <Timmy Andres - Last Filed: 04/21/19 05:14> - Vital Signs Last Vital Signs Temp Pulse Resp BP Pulse Ox 98.1 F 91 H 18 138/69 98 04/21/19 04:30 04/21/19 04:30 04/21/19 04:30 04/21/19 04:30 04/21/19 04:30 <Mary Talley - Last Filed: 04/21/19 19:44> ED Treatment Course - RADIOLOGY Radiology Studies Ordered: Category Date Time Status CHEST PA & LAT [RAD] Stat Radiology 04/21/19 04:50 Ordered NECK SOFT TISSUE [RAD] Stat Radiology 04/21/19 04:48 Ordered <Timmy Andres - Last Filed: 04/21/19 05:14> Medical Decision Making - Medical Decision Making 04/21/19 04:58 Patient is a 63M with history of cad and hld here today with possible foreign body sensation. Do not suspect respiratory involvement as there are no respiratory symptoms. Will do neck and chest to eval for foreign body in upper GI system. Patient had plastic piece with him, edges not sharp. Likely can manage expectant if ingested. Likely discharge. 04/21/19 05:14 No foreign body appreciated. Will discharge with return precautions. <Timmy Andres - Last Filed: 04/21/19 05:14> Discharge - Discharge Information Problems reviewed: Yes - Admission No <Timmy Andres - Last Filed: 04/21/19 05:14> - Admission No <Mary Talley - Last Filed: 04/21/19 19:44> - Discharge Information Clinical Impression/Diagnosis: Foreign body ingestion Condition: Good Disposition: HOME - Follow up/Referral Referrals: Anjali Lira MD [Primary Care Provider] - - Patient Discharge Instructions Additional Instructions: You may have ingested a foreign body today, but it will most likely pass on it' s own if you did. Please return to the ED if you have any new, worsening or concerning symptoms, especially uncontrolled drooling, chest pain, abdominal pain, vomiting and blood in your stool. - Post Discharge Activity
--- NOTE | 2019-04-21 05:18 | PDOC ---
Attending Attestation - Resident Resident Name: Timmy Andres - ED Attending Attestation I have performed the following: I have examined & evaluated the patient, The case was reviewed & discussed with the resident, I agree w/resident's findings & plan - HPI HPI: 04/21/19 05:15 63M with history of CAD s/p cabg and hld here today complaining of possibly swallowing a foreign body. Patient states he was drinking ice water when he noticed a piece of plastic from his refrigerator in his glass. He then noticed a foreign body sensation in his throat. Denies coughing, shortness of breath, chest pain, drooling, nausea/vomiting.. able to tolerate oral intake. - Physicial Exam PE: 04/21/19 05:16 Agree with the resident's HPI and PE as documented in the electronic medical record. NAD, well appearing, EOMI, PERRL, nl conjunctiva, anicteric; airway patent, normal phonation, oropharynx clear no foreign body seen. Neck supple. lungs clear, RRR, abdomen soft nontender. no rebound, guarding. Back nontender. MUÑOZ x4 , no focal neuro deficits. No peripheral edema. normal color for ethnicity, WWP. - Medical Decision Making 04/21/19 05:16 Vital Signs Temp Pulse Resp BP Pulse Ox 98.1 F 91 H 18 138/69 98 04/21/19 04:30 04/21/19 04:30 04/21/19 04:30 04/21/19 04:30 04/21/19 04:30 VS reviewed, wnl. HD appropriate. well appearing, nontoxic. Patient with an intact airway, normal phonation, no evidence of obstruction. No chest pain, shortness of breath, no respiratory distress or abdominal pain. X-ray done of the soft tissues of the neck/chest, no evidence of foreign body seen. Patient brought in a piece of the plastic that was found and does not appear sharp. Low suspicion for perforation, no evidence of chest pain or abdominal pain, no evidence of mediastinitis or pneumomediastinum. Patient is able to tolerate oral intake. Discharged in stable condition, return precautions such as chest pain, respiratory distress, abdominal pain, bloody stools or signs and symptoms of perforation.
== END 2019-04-21 05:38 | disposition home or self-care (01) ==
LOC: JER 04:23
DX: R09.89 Other specified symptoms and signs involving the circulatory and respiratory systems (principal); Z91.018 Allergy to other foods; I25.10 Atherosclerotic heart disease of native coronary artery without angina pectoris; E78.5 Hyperlipidemia, unspecified; I25.2 Old myocardial infarction; E78.00 Pure hypercholesterolemia, unspecified; I10 Essential (primary) hypertension
CPT/HCPCS: 70360-TC-FY; 71046-TC-FY; 99282-25

== ENCOUNTER 2021-01-31 04:43 | Inpatient (IN) | payer OTHER ==
[2021-01-26 14:49] VITALS: BMI 40.5
[2021-01-31] MEDS ORDERED: ceFAZolin SODIUM 1 GM VIAL ONE ×3 (08:40→12:49)
[2021-01-31] MEDS ORDERED: CEFAZOLIN 2 GM in DEXTROSE 5%-WATER - 100 ML IVPB ONE (09:30)
[2021-01-31] MEDS ORDERED: MIDAZOLAM HCL 2 MG/2 ML SINGLE DOSE VIAL ONE (11:20)
[2021-01-31] MEDS ORDERED: PROPOFOL 20 ML ONE (11:20)
[2021-01-31] MEDS ORDERED: ROCURONIUM BROMIDE 50 MG/5 ML SYRINGE ONE ×2 (11:21→12:52)
[2021-01-31] MEDS ORDERED: ceFAZolin SODIUM 1 GM VIAL IVPB ONE (12:20)
[2021-01-31] MEDS ORDERED: HEPARIN NA (PORCINE) 5,000 UNITS/ML 1ML VIAL SQ ONE (12:22)
[2021-01-31] MEDS ORDERED: LIDOCAINE HCL/PF 2% SDV 5ML VIAL ONE (12:49)
[2021-01-31] MEDS ORDERED: HEPARIN NA (PORCINE) 5,000 UNITS/ML 1ML VIAL ONE (12:49)
[2021-01-31] MEDS ORDERED: DEXAMETHASONE SOD PHOSPHATE 4 MG/1 ML VIAL ONE (12:49)
[2021-01-31] MEDS ORDERED: PROTAMINE SULFATE 50 MG/5 ML VIAL ONE (13:47)
[2021-01-31] MEDS ORDERED: NEOSTIGMINE METHYLSULFATE 0.5 MG/ML - 10 ML MDV ONE (13:53)
[2021-01-31] MEDS ORDERED: ONDANSETRON 4 MG/2 ML VIAL IVPUSH PRN (14:14)
[2021-01-31] MEDS ORDERED: LACTATED RINGERS SOLUTION 1,000 ML IV SCH (14:15)
[2021-01-31] MEDS: INSULIN SLIDING SCALE (NOVOLOG) 1 VIAL SQ SCH ×2 (17:09→22:43)
[2021-01-31] MEDS ORDERED: PT OWN MED DRAWER 7, Y5N ONE (18:15)
[2021-01-31] MEDS: CEFAZOLIN 2 GM in DEXTROSE 5%-WATER - 100 ML IVPB SCH (18:30)
[2021-01-31] MEDS ORDERED: ACETAMINOPHEN 1000 MG/100 ML VIAL IVPB PRN (20:05)
[2021-01-31] MEDS ORDERED: ATORVASTATIN CA 10 MG TABLET (FP) PO SCH (22:00)
[2021-01-31] MEDS: CARVEDILOL 6.25 MG TABLET (FP) PO SCH (22:30)
[2021-02-01] MEDS ORDERED: PT OWN MED DRAWER 7, Y5N ONE (02:43)
[2021-02-01] MEDS: CEFAZOLIN 2 GM in DEXTROSE 5%-WATER - 100 ML IVPB SCH (03:37)
[2021-02-01] MEDS: INSULIN SLIDING SCALE (NOVOLOG) 1 VIAL SQ SCH (06:06)
[2021-02-01 06:54] VITALS: PULSE 67; TEMP 97.5
[2021-02-01 09:11] LABS: BASO % 0.8 % (0-2.0); EOS % 3.2 % (0-4.5); HEMATOCRIT 47.7 % (35.4-49); HEMOGLOBIN 15.8 GM/dL (11.7-16.9); LYMPH % 11.7 % (8-40); MCHC 33.1 g/dl (32.0-35.9); MEAN CELL VOLUME 90.6 fl (80-96); MEAN PLT VOLUME 9.8 fl (7.5-11.1); MONO % 7.8 % (3.8-10.2); NEUT % 76.5 % (42.8-82.8); PLATELET COUNT 154 10^3/uL (134-434); RBC 5.27 M/mm3 (4.00-5.60); WHITE BLOOD COUNT 15.4 K/mm3 (4.0-10.0)
[2021-02-01] MEDS: CARVEDILOL 6.25 MG TABLET (FP) PO SCH (09:33)
[2021-02-01 09:43] LABS: CALCIUM 8.4 mg/dL (8.5-10.1)
[2021-02-01 09:44] LABS: ALBUMIN 3.3 g/dl (3.4-5.0); BLOOD UREA NITROGEN 11.3 mg/dL (7-18)
[2021-02-01 09:47] LABS: PHOSPHOROUS 3.3 mg/dL (2.5-4.9)
[2021-02-01 09:48] LABS: BILIRUBIN,TOTAL 0.7 mg/dL (0.2-1); TOT PROT 7.2 g/dl (6.4-8.2)
[2021-02-01] MEDS ORDERED: ASPIRIN 81 MG CHEWABLE TABLETS PO SCH (10:00)
[2021-02-01] MEDS ORDERED: CLOPIDOGREL BISULFATE 75 MG TABLET (FP) PO SCH (10:00)
[2021-02-01 11:10] VITALS: BP 139/75
== END 2021-02-01 11:30 | disposition home or self-care (01) | DRG 269 ==
LOC: J2C 04:43 → JICU 16:13
PROVIDERS: ADMIT Surgery; ATTEND Surgery
PROC: 04V03DZ Restriction of Abdominal Aorta with Intraluminal Device, Percutaneous Approach (ICD-10-PCS; principal; 2021-01-31 10:00)
DX: I71.4 Abdominal aortic aneurysm, without rupture (principal); I10 Essential (primary) hypertension; I25.10 Atherosclerotic heart disease of native coronary artery without angina pectoris; E78.5 Hyperlipidemia, unspecified; Z95.1 Presence of aortocoronary bypass graft
CPT/HCPCS: 36415; 76000-TC-FY; 80053; 82962; 83735; 84100; 85025; 86850; 86900; 86901; 86922; 94760; J0131; J1644